=== PATIENT | male | born 1965 | race African-American/Black ===

== ENCOUNTER 2022-11-16 01:35 | Day surgery (SDC) | payer OTHER, SELFPAY ==
[2022-11-03 12:34] VITALS: BMI 27.1
[2022-11-16 06:39] VITALS: BP 123/74; PULSE 69; RESP 20; TEMP 36.8; O2SAT 98
[2022-11-16] MEDS: LACTATED RINGERS 1,000 ML 150 ML IV CONT (06:41)
--- NOTE | 2022-11-16 07:24 | WPDANESEPPF ---
Anes - Initial Pre Proc Eval Procedure: Operation Date: 11/16/22 08:00 Proposed Procedures p Colonoscopy - David Bojorquez MD Date/Time: 11/16/22 07:24 Surgeon: David Bojorquez MD Pre Op Diagnosis: hx colon polyps Patient Data Age: 57 Gender: M Height: 1.73 m Weight: 80.6 kg Last Vital Signs Temp 98.3 F 11/16/22 06:39 Pulse 69 11/16/22 06:39 Resp 20 11/16/22 06:39 BP 123/74 11/16/22 06:39 Pulse Ox 98 11/16/22 06:39 O2 Del Method Room Air 11/16/22 06:39 Allergies Allergy/AdvReac Type Severity Reaction Status Date / Time No Known Allergies Allergy Verified 11/16/22 06:38 Home Medications Medication Instructions Recorded Confirmed Type No Home Medications 09/24/22 11/16/22 History Patient hx anesthesia problems: none Family hx anesthesia problems: none Results Review: All pre-operative results and documents have been reviewed as part of the pre-operative evaluation. [facility] Past Medical History Medical History Gout HSV-2 (herpes simplex virus 2) infection Surgical History Surgical History History of skin surgery lipomas removed from back of neck and behind right shoulder Family History Family History Father Malignant neoplasm of prostate Diabetes mellitus Sibling Hypertension Thyroid disorder Other Gout Social History Social History Social History: Walks daily for exercise. Follows heart healthy diet. Does not drink caffeine. Smoking status: Never smoker Alcohol intake: never Substance use: never Substance use type: does not use Lack of Transportation: No Lack of Food: Sometimes True Current Housing: I Have Housing Concerned About Future Housing: No Difficulty Paying Gas/Electric Bills: No Difficulty Paying for Meds: YES Currently Unemployed: YES Education: High School Diploma/GED Difficulty w/ Childcare or Family Care: No Living arrangements: with family Occupation/Education: unemployed Spiritual care concerns: No Anes - Eval Final PreProcedure Day of Procedure 11/16/22 07:24 Patient weight: overweight Heart: regular rate and rhythm Lungs: clear to auscultation Airway: Mallampati scale class II Neurological: alert and oriented Last oral intake: >/= 8 hours ASA classification: II Emergent: no Anesthetic plan: proceed Anesthesia type and monitoring: general GIVS and standard monitoring Results Review: All pre-operative results and documents have been reviewed as part of the pre-operative evaluation. Informed Consent: The patient's anesthetic plan and its attendant risks and benefits were discussed with the patient/family/POA. Questions were solicited and answers provided to the satisfaction of the patient/family/POA.
--- NOTE | 2022-11-16 07:48 | PM.HPGS ---
History of Present Illness History of Present Illness Consent: Risks, benefits, and alternatives have been discussed and questions answered. Patient agrees to proceed with procedure. Chief complaint: hx colon polyps Narrative: Remy Bauer Jr. is a 57 year old male with colon polyp 5 years ago Review of Systems Constitutional: Constitutional: Denies headache(s) and Denies weakness Eyes: Eyes: Denies blurry vision ENT: Reports Normal hearing present, Denies headache(s) and Denies neck pain Cardiovascular: Cardiovascular: Denies chest pain and Denies dyspnea Respiratory: Respiratory: Denies dyspnea Gastrointestinal: Gastrointestinal: Reports no additional gastrointestinal complaints Genitourinary: Genitourinary: Denies dysuria Musculoskeletal: Musculoskeletal: Denies neck pain Integumentary/Breasts: Skin/Breast: Denies dry skin Neurologic: Reports Normal hearing present, Denies headache(s) and Denies weakness Psychiatric: Psychiatric: Denies anxiety Endocrine: Endocrine: Denies change in body appearance Hematologic/Lymphatic: Hematologic/Lymphatic: Denies easy bleeding Allergic/Immunologic: Allergic/Immunologic: Denies urticaria PMFSH Past Medical History Medical History (Updated 11/16/22 @ 07:49 by David Bojorquez MD) Colon polyp Gout HSV-2 (herpes simplex virus 2) infection Surgical History Surgical History History of skin surgery lipomas removed from back of neck and behind right shoulder Family History Family History Father Malignant neoplasm of prostate Diabetes mellitus Sibling Hypertension Thyroid disorder Other Gout Social History Social History Social History: Walks daily for exercise. Follows heart healthy diet. Does not drink caffeine. Smoking status: Never smoker Alcohol intake: never Substance use: never Substance use type: does not use Lack of Transportation: No Lack of Food: Sometimes True Current Housing: I Have Housing Concerned About Future Housing: No Difficulty Paying Gas/Electric Bills: No Difficulty Paying for Meds: YES Currently Unemployed: YES Education: High School Diploma/GED Difficulty w/ Childcare or Family Care: No Living arrangements: with family Occupation/Education: unemployed Spiritual care concerns: No Meds Home Medications and Allergies Home Medications Medication Instructions Recorded Confirmed Type No Home Medications 09/24/22 11/16/22 History Allergies Allergy/AdvReac Type Severity Reaction Status Date / Time No Known Allergies Allergy Verified 11/16/22 06:38 Vital Signs Vital Signs - 24 hr 11/16/22 06:39 Temperature 98.3 F Pulse Rate 69 Respiratory Rate 20 Blood Pressure 123/74 Pulse Oximetry 98 Oxygen Delivery Room Air Exam Const: General: comfortable and no acute distress HENMT: Face/Nose/Sinus: Normal nares present Eyes: General: appearance normal, both eyes and all related structures Neck: Neck: no JVD Resp: Auscultation: clear to auscultation bilaterally Cardio: Rate: regular rate Rhythm: regular rhythm GI: Inspection: non-distended GI Palp: Yes Soft to palpation Skin: General skin exam: normal color Neuro: General: gait normal Speech: normal speech Extrem: General: normal to inspection Psych: Mental Status: mental status grossly normal Assessment and Plan Assessment and plan (1) Colon polyp: Code(s): K63.5 - Polyp of colon Status: Acute Assessment and Plan: colonoscopy
[2022-11-16 08:14] VITALS: BP 107/73; PULSE 62; RESP 15; O2SAT 100
[2022-11-16 08:24] VITALS: BP 118/77; PULSE 61; RESP 13; O2SAT 100
[2022-11-16 08:34] VITALS: BP 127/80; PULSE 60; RESP 17; O2SAT 100
== END 2022-11-16 08:46 | disposition home or self-care (01) ==
PROVIDERS: PCP Family Medicine Adolescent Medicine; Visit Provider Internal Medicine Gastroenterology
PROC: 0DJD8ZZ Inspection of Lower Intestinal Tract, Via Natural or Artificial Opening Endoscopic (ICD-10-PCS; CPT 45378; principal; 2022-11-16 08:00)
DX: Z12.11 Encounter for screening for malignant neoplasm of colon (principal); D12.3 Benign neoplasm of transverse colon
CPT/HCPCS: 45385; 88305; J2001; J2704; J7120

== ENCOUNTER 2024-01-31 09:41 | Outpatient (CLI) | payer OTHER, SELFPAY ==
--- NOTE | ~2024-01-31 | XR_ITS ---
EXAMINATION: XR lumbar spine 2-3V DATE: 01/31/2024 10:05 INDICATION: Sacroiliitis. TECHNIQUE: 3 views of lumbar spine were obtained. COMPARISON: None. FINDINGS: There is 7 degrees dextrocurvature of lumbar spine. Vertebral body heights are normal. Ther e is severely decreased disc height at L1-L2, moderately decreased disc height at L3-L4, mildly decre ased disc height at L4-L5, and severely decreased disc height at L5-S1. There is multilevel facet treva nt osteoarthritis, severe in lower lumbar spine. IMPRESSION: 1. Severe lumbar spondylosis. Reviewed, dictated and finalized at location A. UNT MANAGER
[2024-01-31 10:51] LABS: Alanine Aminotransferase 44 U/L (6-50); Albumin Level 4.3 g/dL (3.5-5.1); Alkaline Phosphatase 78 U/L (38-126); Anion Gap 4 mmol/L (4-12); Aspartate Amino Transferase 32 U/L (17-59); Bilirubin,Total 1.1 mg/dL (0.2-1.3); Blood Urea Nitrogen 15 mg/dL (9-20); Calcium 9.4 mg/dL (8.4-10.2); Carbon Dioxide 31 mmol/L (22-30); Chloride 104 mmol/L (98-107); Cholesterol 227 mg/dL (0-200); Estimated Glomerular Filt Rate > 60; Glucose 132 mg/dL (65-110); HDL Direct 49 mg/dL; Potassium 3.7 mmol/L (3.4-5.0); Sodium 139 mmol/L (137-145); Triglycerides 97 mg/dL (<150)
[2024-01-31 10:53] LABS: Rheumatoid Factor < 12.0 IU/ML (<12)
[2024-01-31 11:01] LABS: LDL Cholesterol Direct 115 mg/dL
[2024-01-31 11:20] LABS: Prostate Specific Antigen 1.3 ng/mL (< OR = 4.0)
[2024-01-31 11:29] LABS: Erythrocyte Sedimentation Rate 4 mm/hr (0-20)
[2024-02-01 14:44] LABS: Anti Cyclic Citrullinated Pept <16 UNITS
== END 2024-01-31 09:42 | disposition home or self-care (01) ==
PROVIDERS: PCP Family Medicine Adolescent Medicine; Visit Provider Nurse Practitioner Family
DX: B00.9 Herpesviral infection, unspecified (principal); M10.9 Gout, unspecified; M25.532 Pain in left wrist; Z12.5 Encounter for screening for malignant neoplasm of prostate; Z13.220 Encounter for screening for lipoid disorders; M46.1 Sacroiliitis, not elsewhere classified; Z87.39 Personal history of other diseases of the musculoskeletal system and connective tissue; M47.896 Other spondylosis, lumbar region
CPT/HCPCS: 36415; 72100; 80053; 80061; 84153; 85652; 86038; 86039; 86200; 86430; G0103

== ENCOUNTER 2024-03-23 08:00 | Outpatient (RCR) | payer OTHER, SELFPAY ==
--- NOTE | 2024-03-03 14:29 | OPREHPOC ---
Outpatient Therapy Plan of Care This is a Multidisciplinary Plan of Care that may contain components documented by all disciplines (PT, OT, and ST.) PT Problem 1 PT Problem #1 Knowledge Deficit PT Goal 1 Goal / Goal Update *indep with HEP Target Visit 6 PT Goal 2 Goal / Goal Update * pt demonstrate correct technique with lifting from the floor Target Visit 6 PT Problem 2 PT Problem #2 Pain PT Goal 1 Goal / Goal Update * pt report pain at the worst of 2/10 Target Visit 6 PT Goal 2 Goal / Goal Update * radicular pain R LE to lateral hip at worst Target Visit 6 PT Problem 3 PT Problem #3 Impaired Strength PT Goal 1 Goal / Goal Update * good stability of lumbar spine with lifting from floor and simulated tasks of using chain saw Target Visit 6
--- NOTE | 2024-03-03 14:30 | PTOPEVAL1 ---
Assessment and note entered by Lala Ramos, PT Evaluation Information Assessment Status Evaluation ICD-10 Condition Codes (PT) Radiculopathy, lumbar region M54.16 Onset about year ago Subjective Information onset with turning in kitchen- instant pain and froze him few minutes, then eased and could move again. that happens every now and then; now more often, happens about 1-2 x/week with turning his back; now moving slower when doing things; get out of the car slower; avoiding lifting now. did fall few years ago on the ice and fell onto butt, pain for few days, then gone; Activity: works seasonal--trim trees; lift and carry logs; does some walking but not regular fitness activity; always done physical work and lifting Reported Pain Level Pain Score Self Report Additional Pain Score Comments pain range 0-6/10; tight and freezes his back, cannot move; catch in back then radicular into R LE - to posterior mid thigh increase pain: twist trunk, getting in/out trunk, lifting decrease pain: hold still, passes in few minutes; heat or ice take over the counter meds PRN Assessment PT Clinical Summary Remy has the diagnosis of radicular lumbar pain. Oswestry self rating of 34% limitation in activity level. He reports intermittent radicular pain into R LE to mid thigh, lasting few minutes, then gone. 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 Does not have any history of back pain. With the evaluation: he has good flexibility & strength of hips; reports of tight and stiff with motions and testing; only motion during eval that he called slight pain was with supine piriformis stretch on R; posture of flat lumbar spine and rounded shoulders. With his demonstration of lifting from the floor, he had poor technique--did not squat and twisted his back. Skilled PT services are indicated for modalities PRN for pain control, therapeutic exercises to increase abdominal support to spine, education for HEP and body mechanics. Plan of Care Interventions Electrical Stimulation,Hot Pack/Cold Pack,Manual Therapy,Neuro Re-education,Patient/Caregiver Education,Therapeutic Activities,Therapeutic Exercise,Ultrasound PT Services Indicated Yes Treatment Frequency and 1-2x/wk for 6 visits Duration These treatments will address the objective and functional deficits as defined above. The patient will be advanced safely and appropriately in order for the patient to progress towards his/her prior level of function. Additional exercises will be introduced and as well as a comprehensive home exercise program upon discharge, if needed, ?to ensure carryover of functional gains achieved in the clinic. This treatment plan has been reviewed and agreement upon by the patient.
--- NOTE | 2024-03-23 08:40 | PTOPDC ---
Assessment and note entered by Lala Ramos, PT Assessment Status Discharge ICD-10 Condition Codes (PT) Radiculopathy, lumbar region M54.16 Onset about year ago Subjective Information doing well, have not had any back pain lately; have not been working due to the cold weather and snow; have really learned a lot about lifting and how to do things the right way; doing the exercises at home--stretches really help; ready to be finished with therapy. Reported Pain Level Pain Score 0: Self Report Assessment PT Clinical Summary Remy has received 6 treatment sessions. Compared to the initial evaluation: pain rating now 0/10; Oswestry back self assessment of 0% limitation in activity level; improved trunk and hip strength and stability, education for HEP, correct body mechanics and lifting techniques. The goals were achieved. Discharge PT and he is to continue with his HEP and using good body mechanics. Plan of Care PT Services Indicated No
== END 2024-03-23 11:06 | disposition home or self-care (01) ==
LOC: ANHPT 08:00
PROVIDERS: PCP Family Medicine Adolescent Medicine; Visit Provider Nurse Practitioner Family
DX: M47.27 Other spondylosis with radiculopathy, lumbosacral region (principal)
CPT/HCPCS: 97110; 97161; 97530

== ENCOUNTER 2024-04-06 10:48 | Outpatient (RCR) | payer OTHER, SELFPAY | END 2024-06-26 09:27 | disposition home or self-care (01) | LOC: ANHDMC 10:48 | PROVIDERS: PCP Family Medicine Adolescent Medicine; Visit Provider Nurse Practitioner Family | DX: E11.9 Type 2 diabetes mellitus without complications (principal); M10.9 Gout, unspecified; Z71.89 Other specified counseling | CPT/HCPCS: G0108 ==

== ENCOUNTER 2024-04-11 10:01 | Outpatient (CLI) | payer OTHER, SELFPAY ==
--- NOTE | ~2024-04-11 | US_ITS ---
EXAM: Focused ultrasound examination of the soft tissues of the right groin HISTORY: K40.90 - Unilateral inguinal hernia, without obstruction ... TECHNIQUE: Sonographic evaluation of the soft tissues of the right groin were performed assessing gra yscale appearance and color Doppler flow. COMPARISON: None. FINDINGS: Sonographic evaluation of the soft tissues of the right groin demonstrate a 12 mm fascial defect thro ugh which fatty tissue extrudes. Hernia sac was easily reducible. Sonographic evaluation of the remainder of the soft tissues of the right groin demonstrate benign fib rofatty and fibromuscular elements without a cystic or solid lesion of concern. IMPRESSION: Right inguinal hernia, easily reducible, as detailed above. Reviewed, dictated and finalized at location A. [facility]
--- OUTSIDE RECORDS SUMMARY | 2024-04-11 11:06 | XMS_ITS | Clinical Summary ---
Author Organization [facility] Address [facility] [place] [address] Care Team Providers Care Mobility Architect Manager Name Role Phone Jamil Song MD Primary Care Provider [phone] Allergies Active Allergy Reactions Criticality Noted Date Comments Iodine Hives 06/16/2018 Medications cyclobenzaprine 10 MG tablet Take 1 tablet (10 mg total) by mouth 3 (three) times daily as needed. 15 tablet 05/09/2021 Active lidocaine 4 % patch Place 1 patch onto the skin daily. Remove & Discard patch within 12 hours or as directed by 7 patch 05/09/2021 Active ibuprofen (MOTRIN) 600 MG tablet Take 1 tablet (600 mg total) by mouth every 8 (eight) hours as needed for Pain. 20 tablet 01/21/2022 Active methylPREDNISol one, SARA, (MEDROL DOSEPAK) 4 MG tablet 6 TABLETS ON DAY ONE, 5 TABLETS DAY TWO, 4 TABLETS DAY THREE, 3 TABLETS DAY FOUR, 2 TABLETS DAY FIVE, AND 1 TABLET DAY SIX 1 each 01/21/2022 Active indomethacin (INDOCIN) 25 MG capsule Take 1 capsule (25 mg total) by mouth 2 (two) times daily with meals. 20 capsule 04/11/2022 Active Social History Tobacco Use Types Packs/Day Years Used Date Smoking Tobacco: Never Smokeless Tobacco: Never Tobacco Cessation:Counseling Given: Not Answered Alcohol Use Standard Drinks/Week Comments No 0 (1 standard drink = 0.6 oz pur e alcohol) AUDIT-C Answer Date Recorded Frequency of Alcohol Consumption Never 06/16/2018 Average Number of Drinks Not on file 019 Frequency of Binge Drinking Not on file 05/30 Sex and Gender Information Value Date Recorded Sex Assigned at Not on file Legal Sex Male 8:00 PM CDT Gender Identity Not on file Sexual Orientation Not on file Last Filed Vital Signs Vital Sign Reading Time Taken Comments Blood Pressure 132/91 04/11/2022 6:37 AM RESEARCH AND DEVELOPMENT DIRECTOR Pulse 71 04/11/2022 6:37 AM RESEARCH AND DEVELOPMENT DIRECTOR Temperature 37.6 C (99.7 F) 04/11/2022 6:37 AM RESEARCH AND DEVELOPMENT DIRECTOR Respiratory Rate 20 04/11/2022 6:37 AM RESEARCH AND DEVELOPMENT DIRECTOR Oxygen Saturation 100% 04/11/2022 6:37 AM RESEARCH AND DEVELOPMENT DIRECTOR Inhaled Oxygen Concentration - - Weight 88.8 kg (195 lb 12.3 oz) 04/11/2022 6:37 AM RESEARCH AND DEVELOPMENT DIRECTOR Height 172.7 cm (5' 8 ) 04/11/2022 6:37 AM RESEARCH AND DEVELOPMENT DIRECTOR Body Mass Index 29.77 04/11/2022 6:37 AM RESEARCH AND DEVELOPMENT DIRECTOR Plan of Treatment Health Maintenance Due Date Last Done Comments Colorectal Cancer Screening Colonoscopy (10 Years) 1966 Annual Physical 1969 Hepatitis C 02/23/1984 Hepatitis B Vaccines (1 of 3 - 19+ 3-dose series) 1985 Zoster Vaccines (1 of 2) 02/23/2016 COVID-19 Vaccine ( season) 2023 12/20/2021, 02/18/2021, 05/07/2020 Influenza Adult (#1) 2023 12/13/2021, 12/13/2019, 02/08/2019, Additional history exists DTaP, Tdap and Td Vaccines (2 - Td or Tdap) 04/06/2026 04/06/2016 Meningococcal B Vaccine Aged Out No l onger eligible based on patient's age to complete this topic Meningococcal Vaccine Aged Out No teodora gordon eligible based on patient's age to complete this topic Pneumococcal Vaccine: Pediatrics (0 to 5 Years) and At-Risk Patients (6 to 64 Years) Aged Out No longer eligible based on patient's age to complete this topic RSV Immunizations Under 20 Months Aged Out No longer eligible based on patient's age to complete this topic Insurance [employer] Care Teams Mobility Architect Manager Relationship Specialty Start Date End Date Jamil Song MD PCP - General FAMILY PRACTICE 06/16/18
--- OUTSIDE RECORDS SUMMARY | 2024-04-11 11:06 | XMS_ITS | Referral Summary ---
Author Organization [facility] Address [address] [place] [address] Care Team Providers Care Sales Trader Name Role Phone Jamil Song MD Primary Care Provider [phone] Source Comments [facility],non-owned Affiliates and Associated Physician Practices is amultiple site organization consisting of ambulatory clinics and hospital sitesin [place], [place], [place] and [place]. This disclosure is being madepursuant to the Care Everywhere program and may not contain all information available regarding this patient. Last updated 17.[facility] Allergies Active Allergy Reactions Criticality Noted Date Comments Povidone Iodine Urticaria Medium 06/16/2018 Medications * Be aware that medications may not be up to date on this document. Alwaysverify current medications with the patient. Medication Sig Dispensed Refills Start Date End Date Status ibuprofen (Motrin) 600 MG tablet Take 1 (one) tablet by mouth every 8 hours as needed For pain. 01/21/2022 Active meloxicam (Mobic) 15 MG tabletIndications:Ach illes tendinitis of left lower extremity Take 1 (one) tablet by mouth once daily 30 tablet 07/29/2023 Active Active Problems Problem Noted Date Diagnosed Date Tendinopathy of left rotator cuff 10/07/2022 Rotator cuff impingement syndrome of right shoul artis 08/03/2018 Social History Tobacco Use Types Packs/Day Years Used Date Smoking Tobacco: Never Smokeless Tobacco: Never Tobacco Cessation:Counseling Given: Not Answered Alcohol Use Standard Drinks/Week Comments No 0 (1 standard drink = 0.6 oz pur e alcohol) Sex and Gender Information Value Date Recorded Sex Assigned at Not on file Gender Identity Not on file Sexual Orientation Not on file Last Filed Vital Signs Vital Sign Reading Time Taken Comments Blood Pressure 136/88 09/22/2019 8:18 AM CDT Pulse 70 09/22/2019 8:18 AM CDT Temperature 36.6 C (97.9 F) 09/22/2019 8:18 AM CDT Respiratory Rate - - Oxygen Saturation 99% 09/22/2019 8:18 AM CDT Inhaled Oxygen Concentration - - Weight 89.8 kg (198 lb) 09/30/2023 9:46 AM CDT Height 170.2 cm (5' 7 ) 09/30/2023 9:46 AM CDT Body Mass Index 31.01 09/30/2023 9:46 AM CDT Plan of Treatment Not on file Care Teams Sales Trader Relationship Specialty Start Date End Date Jamil Song MD [address] [place] [id number] PCP - General 06/22/18
--- OUTSIDE RECORDS SUMMARY | 2024-04-11 11:06 | XMS_ITS | Patient Health Summary ---
Author Organization [facility] Address [address] [place] [address] Care Team Providers Care Vat Overhauler Name Role Phone Jamil Song MD Primary Care Provider [phone] Note from [facility],non-owned Affiliates and Associated Physician Practices is amultiple site organization consisting of ambulatory clinics and hospital sitesin [place], [place], [place] and [place]. This disclosure is being madepursuant to the Care Everywhere program and may not contain all information available regarding this patient. Last updated 17.[facility] Allergies * Povidone Iodine(Urticaria) -Medium Criticality Medications * Be aware that medications may not be up to date on this document. Alwaysverify current medications with the patient. * ibuprofen (Motrin) 600 MG tablet(Started 01/21/2022) Take 1 (one) tablet by mouth every 8 hours as needed For pain. * meloxicam (Mobic) 15 MG tablet(Started 07/29/2023) Take 1 (one) tablet by mouth once daily Active Problems Problem Noted Date Diagnosed Date [...] Mass Index 31.01 09/30/2023 9:46 AM CDT Procedures * XR ANKLE LEFT 3VW OR MORE(Performed 07/29/2023) Performed for Orthopedic aftercare * XR FOOT LEFT WT BEARING 3VW(Performed 07/29/2023) Performed for Orthopedic aftercare * WV DRAIN/INJECT LARGE JOINT/BURSA(Performed 10/07/2022) Performed for Tendinopathy of left rotator cuff * WV DRAIN/INJECT LARGE JOINT/BURSA(Performed 10/07/2022) Performed for Tendinopathy of right rotator cuff * WV DRAIN/INJECT LARGE JOINT/BURSA(Performed 09/17/2021) Performed for Tendinopathy of right rotator cuff * WV DRAIN/INJECT LARGE JOINT/BURSA(Performed 09/17/2021) Performed for Tendinopathy of left rotator cuff * XR SHOULDER RIGHT 2VW OR MORE(Performed 09/17/2021) Performed for Right shoulder pain, unspecified chronicity * XR SHOULDER LEFT 2VW OR MORE(Performed 09/17/2021) Performed for Left shoulder pain, unspecified chronicity * WV DRAIN/INJECT LARGE JOINT/BURSA(Performed 10/03/2020) Performed for Tendinopathy of right rotator cuff, Rotator cuff impingement syndrome of right shoulder * WV DRAIN/INJECT LARGE JOINT/BURSA(Performed 03/05/2020) Performed for Tendinopathy of right rotator cuff * WV DRAIN/INJECT LARGE JOINT/BURSA(Performed 11/28/2019) Performed for Tendinopathy of right rotator cuff * WV DRAIN/INJECT LARGE JOINT/BURSA(Performed 01/18/2019) Performed for Rotator cuff impingement syndrome of right shoulder * PROCDOC LARGE JOINT INJECTION(Performed 06/22/2018) Performed for Rotator cuff arthropathy of right shoulder * XR SHOULDER RIGHT 2VW OR MORE(Performed 06/22/2018) Performed for Right shoulder pain, unspecified chronicity * XR CHEST 2VW(Performed 12/26/2013) Results * XR ANKLE LEFT 3VW OR MORE (07/29/2023 10:18 AM CDT) Anatomical Region Laterality Modality Lower Extremity Radiographic Sinai ging 07/29/2023 1:02 PM CDT Impressions 07/29/2023 1:04 PM CDT IMPRESSION: Normal-appearing 3 view study of the left ankle proper. Incidentally noted is a small posterior calcaneal spur seen at the Achilles tendon insertion site. > Interpreting Provider: John Cain MD on 07/29/2023 1:04 PM Narrative 07/29/2023 1:04 PM CDT PROCEDURE: XR ANKLE LEFT 3VW OR MORE DATE/TIME OF EXAM: 07/29/2023 10:18 AM CLINICAL INFORMATION: None relevant/not provided if blank. Indication: Z47.89: Orthopedic aftercare Additional History: COMPARISON: None. FINDINGS: 3 view weightbearing study of the left ankle was performed to include AP, internal rotation and lateral views and shows no evidence of fracture, malalignment nor disruption of the left ankle articulations. Ankle mortise appears normal in width and symmetric in appearance. No evidence of significant joint effusion. Procedure Note John Cain MD - 07/29/2023 PROCEDURE: XR ANKLE LEFT 3VW OR MORE DATE/TIME OF EXAM: 07/29/2023 10:18 AM CLINICAL INFORMATION: None relevant/not provided if blank. Indication: Z47.89: Orthopedic aftercare Additional History: COMPARISON: None. FINDINGS: 3 view weightbearing study of the left ankle was performed to includeAP, internal rotation and lateral views and shows no evidence of fracture, malalignment nor disruption of the left ankle articulations. Anklemortise appears normal in width and symmetric in appearance. No evidence of significant joint effusion. IMPRESSION: Normal-appearing 3 view study of the left ankle proper. Incidentally noted is a small posterior calcaneal spur seen at theAchilles tendon insertion site. > Interpreting Provider: John Cain MD on 07/29/2023 1:04 PM Kailee Nice MD DIAGNOSTIC IMAGING O RDERABLES * XR FOOT LEFT WT BEARING 3VW (07/29/2023 10:18 AM CDT) Anatomical Region Laterality Modality Ankle / Foot Radiographic Sinai ging 07/29/2023 1:13 PM CDT Impressions 07/29/2023 1:14 PM CDT IMPRESSION: Pes planus with a small posterior calcaneal spur and mild arthritic changes of multiple interphalangeal joints of the second through fifth toes. > Interpreting Provider: John Cain MD on 07/29/2023 1:14 PM Narrative 07/29/2023 1:14 PM CDT PROCEDURE: XR FOOT LEFT WT BEARING 3VW DATE/TIME OF EXAM: 07/29/2023 10:18 AM CLINICAL INFORMATION: None relevant/not provided if blank. Indication: Z47.89: Orthopedic aftercare Additional History: COMPARISON: None. FINDINGS: Weightbearing AP, internal rotation and lateral views of the left foot were obtained and shows no evidence of fracture, malalignment nor bone or joint space destruction. No erosive changes were identified. Mild scattered arthritic changes involving multiple interphalangeal joints from the second through fifth toes. Lateral view suggests mild pes planus. Small posterior calcaneal spur is seen at the Achilles tendon insertion site. Procedure Note John Cain MD - 07/29/2023 PROCEDURE: XR FOOT LEFT WT BEARING 3VW DATE/TIME OF EXAM: 07/29/2023 10:18 AM CLINICAL INFORMATION: None relevant/not provided if blank. Indication: Z47.89: Orthopedic aftercare Additional History: COMPARISON: None. FINDINGS: Weightbearing AP, internal rotation and lateral views of the left footwere obtained and shows no evidence of fracture, malalignment nor bone orjoint space destruction. No erosive changes were identified. Mild scattered arthritic changes involving multiple interphalangeal joints from thesecond through fifth toes. Lateral view suggests mild pes planus. Smallposterior calcaneal spur is seen at the Achilles tendon insertion site. IMPRESSION: Pes planus with a small posterior calcaneal spur and mild arthritic changes of multiple interphalangeal joints of the secondthrough fifth toes. > Interpreting Provider: John Cain MD on 07/29/2023 1:14 PM Kailee Nice MD DIAGNOSTIC IMAGING O RDERABLES * WV DRAIN/INJECT LARGE JOINT/BURSA (10/07/2022 9:45 AM CDT) Dominick Shook MD - 10/07/2022 9:45 AM CDT Dominick Cabrera MD 10/07/2022 9:45 AM INJECTION PROCEDURE NOTE: The injection site was marked. A timeout was performed. Under sterile conditions, without complications, tolerated well by the patient, 4 cc ropivacaine and 80 mg (2 cc) triamcinolone were injected into the left subacromial space posteriorly. Dominick Cabrera MD PROCEDURE/MINOR SURG ICAL ORDERABLES * WV DRAIN/INJECT LARGE JOINT/BURSA (10/07/2022 9:45 AM CDT) Dominick Shook MD - 10/07/2022 9:45 AM CDT Dominick Cabrera MD 10/07/2022 9:45 AM INJECTION PROCEDURE NOTE: The injection site was marked. A timeout was performed. Under sterile conditions, without complications, tolerated well by the patient, 4 cc ropivacaine and 80 mg (2 cc) triamcinolone were injected into the right subacromial space posteriorly. Dominick Cabrera MD PROCEDURE/MINOR SURG ICAL ORDERABLES * WV DRAIN/INJECT LARGE JOINT/BURSA (09/17/2021 2:18 PM CDT) Dominick Shook MD - 09/17/2021 2:18 PM CDT Dominick Cabrera MD 09/18/2021 11:43 AM INJECTION PROCEDURE NOTE: The injection site was marked. A timeout was performed. Under sterile conditions, without complications, tolerated well by the patient, 4 cc ropivacaine and 80 mg (2 cc) triamcinolone were injected into the right subacromial space posteriorly. Dominick Cabrera MD PROCEDURE/MINOR SURG ICAL ORDERABLES * WV DRAIN/INJECT LARGE JOINT/BURSA (09/17/2021 2:18 PM CDT) Dominick Shook MD - 09/17/2021 2:18 PM CDT Dominick Cabrera MD 09/18/2021 11:43 AM INJECTION PROCEDURE NOTE: The injection site was marked. A timeout was performed. Under sterile conditions, without complications, tolerated well by the patient, 4 cc ropivacaine and 80 mg (2 cc) triamcinolone were injected into the left subacromial space posteriorly. Dominick Cabrera MD PROCEDURE/MINOR SURG ICAL ORDERABLES * XR SHOULDER RIGHT 2VW OR MORE (09/17/2021 1:57 PM CDT) Only the most recent of2 resultswithin the time period is included. Anatomical Region Laterality Modality Upper Extremity Radiographic Sinai ging 09/17/2021 2:14 PM CDT Impressions 09/17/2021 2:15 PM CDT IMPRESSION: Minimal degenerative change. This report was electronically signed by BRENNAN KUMAR MD on 09/17/2021 2:15 PM . Narrative 09/17/2021 2:15 PM CDT Exam: XR SHOULDER RIGHT 2VW OR MORE History: M25.511: Right shoulder pain, unspecified chronicity Comparison: 06/22/2018 Findings: No fracture or dislocation is present. There is minimal degenerative change without joint space narrowing. Procedure Note Brennan Kumar MD - 09/17/2021 Exam: XR SHOULDER RIGHT 2VW OR MORE History: M25.511: Right shoulder pain, unspecified chronicity Comparison: 06/22/2018 Findings: No fracture or dislocation is present. There is minimal degenerative change without joint space narrowing. IMPRESSION: Minimal degenerative change. This report was electronically signed by BRENNAN KUMAR MD on09/17/2021 2:15 PM . Dominick Cabrera MD DIAGNOSTIC IMAGING O RDERABLES * XR SHOULDER LEFT 2VW OR MORE (09/17/2021 1:57 PM CDT) Anatomical Region Laterality Modality Upper Extremity Radiographic Sinai ging 09/17/2021 2:15 PM CDT Impressions 09/17/2021 2:15 PM CDT IMPRESSION: Mild degenerative change. This report was electronically signed by BRENNAN KUMAR MD on 09/17/2021 2:15 PM . Narrative 09/17/2021 2:15 PM CDT Exam: XR SHOULDER LEFT 2VW OR MORE History: M25.512: Left shoulder pain, unspecified chronicity Comparison: None. Findings: No fracture or dislocation. There is mild acromioclavicular and glenohumeral degenerative change without joint space narrowing. Procedure Note Brennan Kumar MD - 09/17/2021 Exam: XR SHOULDER LEFT 2VW OR MORE History: M25.512: Left shoulder pain, unspecified chronicity Comparison: None. Findings: No fracture or dislocation. There is mild acromioclavicular and glenohumeral degenerative change without joint space narrowing. IMPRESSION: Mild degenerative change. This report was electronically signed by BRENNAN KMUAR MD on09/17/2021 2:15 PM . Dominick Cabrera MD DIAGNOSTIC IMAGING O RDERABLES * WV DRAIN/INJECT LARGE JOINT/BURSA (10/03/2020 2:19 PM CDT) Dominick Shook MD - 10/03/2020 2:19 PM CDT Dominick Cabrera MD 10/03/2020 2:19 PM INJECTION PROCEDURE NOTE: The injection site was marked. A timeout was performed. Under sterile conditions, without complications, tolerated well by the patient, 4 cc ropivacaine and 80 mg (2 cc) triamcinolone were injected into the right subacromial space posteriorly. Dominick Cabrera MD PROCEDURE/MINOR SURG ICAL ORDERABLES * WV DRAIN/INJECT LARGE JOINT/BURSA (03/05/2020 11:47 AM COPYWRITING INTERN) Dominick Shook MD - 03/05/2020 11:47 AM COPYWRITING INTERN Dominick Cabrera MD 03/05/2020 9:54 PM INJECTION PROCEDURE NOTE: The injection site was marked. A timeout was performed. Under sterile conditions, without complications, tolerated well by the patient, 4 cc ropivacaine and 80 mg (2 cc) triamcinolone were injected into the right subacromial space posteriorly. Dominick Cabrera MD PROCEDURE/MINOR SURG ICAL ORDERABLES * WV DRAIN/INJECT LARGE JOINT/BURSA (11/28/2019 11:16 AM CDT) Dominick Shook MD - 11/28/2019 11:16 AM CDT Dominick Cabrera MD 11/28/2019 11:16 AM INJECTION PROCEDURE NOTE: The injection site was marked. A timeout was performed. Under sterile conditions, without complications, tolerated well by the patient, 4 cc ropivacaine and 80 mg (2 cc) triamcinolone were injected into the right subacromial space posteriorly. Dominick Cabrera MD PROCEDURE/MINOR SURG ICAL ORDERABLES * WV DRAIN/INJECT LARGE JOINT/BURSA (01/18/2019 9:25 AM COPYWRITING INTERN) Narrative Dominick Cabrera MD - 01/18/2019 9:25 AM COPYWRITING INTERN Dominick Cabrera MD 01/18/2019 9:55 AM INJECTION PROCEDURE NOTE: The injection site was marked. A timeout was performed. Under sterile conditions, without complications, tolerated well by the patient, 4 cc ropivacaine and 80 mg (2 cc) triamcinolone were injected into the right subacromial space posteriorly. Dominick Cabrera MD PROCEDURE/MINOR SURG ICAL ORDERABLES * PROCDOC LARGE JOINT INJECTION (06/22/2018 10:23 AM CDT) Dominick Shook MD - 06/22/2018 10:23 AM CDT Dominick Cabrera MD 06/22/2018 10:23 AM INJECTION PROCEDURE NOTE: The injection site was marked. A timeout was performed. Under sterile conditions, without complications, tolerated well by the patient, 4 cc lidocaine and 80 mg (2 cc) triamcinolone were injected into the right subacromial space posteriorly. Dominick Cabrera MD PROCEDURE/MINOR SURG ICAL ORDERABLES * XR CHEST 2VW (12/26/2013 4:43 PM CDT) Anatomical Region Laterality Modality Chest Other Impressions 12/27/2013 11:55 AM CDT Impression: 1. Small left pleural effusion. No focal consolidation. 2. No displaced rib fractures are visualized. If there is high clinical concern for rib fractures, a rib series would be beneficial for further evaluation. This report was dictated by Iris Sharp M.D. IDr. Jake M.D. have personally reviewed and interpreted this examination/study. This report was electronically signed by Jake RUIZ M.D. on 12/27/2013 11:55 AM . Narrative 12/27/2013 11:55 AM CDT Exam: XR CHEST PA AND LATERAL Date: 12/26/2013 History: Trauma, rib fractures Findings: There is a small left pleural effusion. There is no focal consolidation or pneumothorax. The cardiac and mediastinal contours are normal. Mild degenerative changes are seen in the thoracic spine. No displaced rib fractures are identified. Procedure Note Melanie Ruiz MD - 05/29/2017 Exam: XR CHEST PA AND LATERAL Date: 12/26/2013 History: Trauma, rib fractures Findings: There is a small left pleural effusion. There is no focalconsolidation or pneumothorax. The cardiac and mediastinal contours arenormal. Mild degenerative changes are seen in the thoracic spine. Nodisplaced rib fractures are identified. IMPRESSION Impression: 1. Small left pleural effusion. No focal consolidation. 2. No displaced rib fractures are visualized. If there is high clinicalconcern for rib fractures, a rib series would be beneficial for furtherevaluation. This report was dictated by Iris Sharp M.D. I, Dr. E. ISIN AKDUMAN, M.D. have personally reviewed and interpreted thisexamination/study. This report was electronically signed by Jake RUIZ M.D. on12/27/2013 11:55 AM . Blu Hogue MD DIAGNOSTIC IMAGING ORDERABLES Care Teams Vat Overhauler Relationship Specialty Start Date End Date Jamil Song MD [address] [place] [address] PCP - General 06/22/18
--- OUTSIDE RECORDS SUMMARY | 2024-04-11 11:06 | XMS_ITS | Clinical Summary ---
Author Organization [facility] Address [address] [place] [address] Care Team Providers Care Tube Mounter Name Role Phone Jamil Song MD Primary Care Provider [phone] Source Comments [facility],non-owned Affiliates and Associated Physician Practices is amultiple site organization consisting of ambulatory clinics and hospital sitesin [place], [place], [place] and [place]. This disclosure is being madepursuant to the Care Everywhere program and may not contain all information available regarding this patient. Last updated 17.[facility] Allergies Active Allergy Reactions Criticality Noted Date [...] 09/30/2023 9:46 AM CDT Plan of Treatment Health Maintenance Due Date Last Done Comments COLOGUARD (AGES 45-75) - COL ON CA SCREENING 1966 COLON MONITORING 1966 COLONOSCOPY - COLON CA SCREENING 1966 CT COLONOGRAPHY - COLON CA SCREENING 1966 Colorectal Cancer Screening 1966 FIT - COLON CA SCREENING 1966 FLEX SIG - COLON CA SCREENING 1966 LIPID TESTING 1966 HIV SCREENING 1981 HEPATITIS C SCREENING 02/18/1984 DTAP/TDAP/TD VACCINES (1 - Tdap) 1985 HEPATITIS B VACCINE (1 of 3 - 19+ 3-dose series) 1985 PNEUMOCOCCAL VACCINE 50+ (1 of 1 - PCV) 02/23/2016 ZOSTER VACCINE (1 of 2) 02/23/2016 SCREENING FOR DIABETES 07/29/2023 COVID-19 VACCINE (1 - 2023-2 5 season) 2023 INFLUENZA VACCINE (#1) 2023 DEPRESSION SCREENING 03/01/2024 HIB VACCINE Aged Out No longer eligi ble based on patient's age to complete this topic HPV VACCINE Aged Out No longer eligi ble based on patient's age to complete this topic MENINGOCOCCAL (Group B) VACCINE Aged Out No longer eligible based on patient's age to complete this topic MENINGOCOCCAL VACCINE Aged Out No teodora gordon eligible based on patient's age to complete this topic PNEUMOCOCCAL VACCINE Aged Out No long er eligible based on patient's age to complete this topic Care Teams Tube Mounter Relationship Specialty Start Date End Date Jamil Song MD [address] [place] [address] PCP - General 06/22/18
== END 2024-04-11 10:02 | disposition home or self-care (01) ==
PROVIDERS: PCP Family Medicine Adolescent Medicine; Visit Provider Nurse Practitioner Family
DX: K40.90 Unilateral inguinal hernia, without obstruction or gangrene, not specified as recurrent (principal)
CPT/HCPCS: 76882

== ENCOUNTER 2024-05-13 06:58 | Emergency (ER) | payer OTHER, SELFPAY ==
--- NOTE | ~2024-05-13 | XR_ITS ---
Right Shoulder Technique: AP and scapular Y views were obtained. Clinical History: Pain Findings: No fracture or dislocation is seen. Osseous alignment is anatomic. The glenohumeral and acr omioclavicular joint spaces are preserved. Soft tissues are unremarkable. Impression: Unremarkable right shoulder radiographs. Reviewed, dictated and finalized at [facility]. Impression: Unremarkable right shoulder radiographs.
[2024-05-13 06:59] VITALS: BP 135/90; PULSE 70; RESP 16; TEMP 36.5; O2SAT 100
--- OUTSIDE RECORDS SUMMARY | 2024-05-13 07:00 | XMS_ITS | Patient Health Summary ---
Author Organization [facility] Address [address] [facility] [place] [address] Care Team Providers Care Manager Media Name Role Phone Randal Chadwick MD Primary Care Provider + Note from [facility],non-owned Affiliates and Associated Physician Practices is amultiple site organization consisting of ambulatory clinics and hospital sitesin [place], [place], [place] and [place]. This disclosure is being madepursuant to the Care Everywhere program and may not contain all information available regarding this patient. Last updated 17.[facility] Allergies * Povidone Iodine(Urticaria) -Medium Criticality Medications * Be aware that medications may not be up to date on this document. Alwaysverify current medications with the patient. * ibuprofen (Motrin) 600 MG tablet(Started 01/21/2022) Take 1 (one) tablet by mouth every 8 hours as needed For pain. * meloxicam (Mobic) 15 MG tablet(Started 07/29/2023) Take 1 (one) tablet by mouth once daily * indomethacin (Indocin) 25 MG capsule(Started 04/11/2022) Take 1 (one) capsule by mouth 2 times daily with morning and evening meal * acyclovir (Zovirax) 400 MG tablet(Started 08/29/2023) Take 1 (one) tablet by mouth 2 times daily Active Problems Problem Noted Date Diagnosed [...] CDT Inhaled Oxygen Concentration - - Weight 82.1 kg (181 lb) 05/08/2024 2:49 PM CDT Height 175.3 cm (5' 9 ) 05/08/2024 2:49 PM CDT Body Mass Index 26.73 05/08/2024 2:49 PM CDT Procedures * NE DRAIN/INJECT LARGE JOINT/BURSA(Performed 05/08/2024) Performed for Tendinopathy of right rotator cuff * XR SHOULDER RIGHT 2VW OR MORE(Performed 05/08/2024) Performed for Tendinopathy of right rotator cuff * XR ANKLE LEFT 3VW OR MORE(Performed 07/29/2023) Performed for Orthopedic aftercare * XR FOOT LEFT WT BEARING 3VW(Performed 07/29/2023) Performed for Orthopedic aftercare * NE DRAIN/INJECT LARGE JOINT/BURSA(Performed 10/07/2022) Performed for Tendinopathy of left rotator cuff * NE DRAIN/INJECT LARGE JOINT/BURSA(Performed 10/07/2022) Performed for Tendinopathy of right rotator cuff * NE DRAIN/INJECT LARGE JOINT/BURSA(Performed 09/17/2021) Performed for Tendinopathy of right rotator cuff * NE DRAIN/INJECT LARGE JOINT/BURSA(Performed 09/17/2021) Performed for Tendinopathy of left rotator cuff * XR SHOULDER RIGHT 2VW OR MORE(Performed 09/17/2021) Performed for Right shoulder pain, unspecified chronicity * XR SHOULDER LEFT 2VW OR MORE(Performed 09/17/2021) Performed for Left shoulder pain, unspecified chronicity * NE DRAIN/INJECT LARGE JOINT/BURSA(Performed 10/03/2020) Performed for Tendinopathy of right rotator cuff, Rotator cuff impingement syndrome of right shoulder * NE DRAIN/INJECT LARGE JOINT/BURSA(Performed 03/05/2020) Performed for Tendinopathy of right rotator cuff * NE DRAIN/INJECT LARGE JOINT/BURSA(Performed 11/28/2019) Performed for Tendinopathy of right rotator cuff * NE DRAIN/INJECT LARGE JOINT/BURSA(Performed 01/18/2019) Performed for Rotator cuff impingement syndrome of right shoulder * PROCDOC LARGE JOINT INJECTION(Performed 06/22/2018) Performed for Rotator cuff arthropathy of right shoulder * XR SHOULDER RIGHT 2VW OR MORE(Performed 06/22/2018) Performed for Right shoulder pain, unspecified chronicity * XR CHEST 2VW(Performed 12/26/2013) Results * NE DRAIN/INJECT LARGE JOINT/BURSA (05/08/2024 3:12 PM CDT) Narrative Dominick Cabrera MD - 05/08/2024 3:12 PM CDT Dominick Cabrera MD 05/08/2024 4:01 PM INJECTION PROCEDURE NOTE: The details of the procedure were discussed with the patient including risks and benefits. The patient had a chance to ask questions and gave consent to proceeding. The injection site was marked. A timeout was performed. Under sterile conditions, without complications, tolerated well by the patient, 5 cc ropivacaine and 80 mg (2 cc) triamcinolone were injected into the right subacromial space posteriorly. There was no blood loss. Dominick Cabrera MD Dominick Cabrera MD PROCEDURE/MINOR SURG ICAL ORDERABLES * XR Shoulder Right 2Vw or More (05/08/2024 2:46 PM CDT) Only the most recent of3 resultswithin the time period is included. Anatomical Region Laterality Modality Upper Extremity Computed Radiogr aphy 05/08/2024 3:34 PM CDT Narrative 05/08/2024 3:35 PM CDT 3 views right shoulder Indication: Right shoulder pain Findings: There is no displaced fracture or dislocation. There is no osseous destruction. Significant hypertrophic or erosive degenerative changes are not identified. There is faint calcification seen along the expected location of the rotator cuff in a pattern concerning for calcific tendinitis. > Interpreting Provider: Marcial Gleason JR, MD on 05/08/2024 3:35 PM Procedure Note Marcial Gleason MD - 05/08/2024 3 views right shoulder Indication: Right shoulder pain Findings: There is no displaced fracture or dislocation. There is no osseous destruction. Significant hypertrophic or erosive degenerative changesare not identified. There is faint calcification seen along the expected location of the rotator cuff in a pattern concerning for calcific tendinitis. > Interpreting Provider: Marcial Gleason JR, MD on 05/08/2024 3:35 PM Dominick Cabrera MD DIAGNOSTIC IMAGING O RDERABLES * XR ANKLE LEFT 3VW OR MORE [...] Nice MD DIAGNOSTIC IMAGING O RDERABLES * NE DRAIN/INJECT LARGE JOINT/BURSA (10/07/2022 9:45 AM CDT) [...] Cabrera MD PROCEDURE/MINOR SURG ICAL ORDERABLES * NE DRAIN/INJECT LARGE JOINT/BURSA (10/07/2022 9:45 AM CDT) [...] Cabrera MD PROCEDURE/MINOR SURG ICAL ORDERABLES * NE DRAIN/INJECT LARGE JOINT/BURSA (09/17/2021 2:18 PM CDT) [...] Cabrera MD PROCEDURE/MINOR SURG ICAL ORDERABLES * NE DRAIN/INJECT LARGE JOINT/BURSA (09/17/2021 2:18 PM CDT) Narrative Dominick Cabrera MD - 09/17/2021 2:18 PM CDT Dominick Cabrera MD 09/18/2021 11:43 AM INJECTION PROCEDURE NOTE: The injection site was marked. A timeout was performed. Under sterile conditions, without complications, tolerated well by the patient, 4 cc ropivacaine and 80 mg (2 cc) triamcinolone were injected into the left subacromial space posteriorly. Dominick Cabrera MD PROCEDURE/MINOR SURG ICAL ORDERABLES * XR SHOULDER LEFT 2VW OR MORE [...] change without joint space narrowing. Procedure Note rBennan Kumar MD - 09/17/2021 Exam: XR SHOULDER LEFT 2VW OR MORE History: M25.512: Left shoulder pain, unspecified chronicity Comparison: None. Findings: No fracture or dislocation. There is mild acromioclavicular and glenohumeral degenerative change without joint space narrowing. IMPRESSION: Mild degenerative change. This report was electronically signed by BRENNAN KUMAR MD on09/17/2021 2:15 PM . Dominick Cabrera MD DIAGNOSTIC IMAGING O RDERABLES * NE DRAIN/INJECT LARGE JOINT/BURSA (10/03/2020 2:19 PM CDT) [...] Cabrera MD PROCEDURE/MINOR SURG ICAL ORDERABLES * NE DRAIN/INJECT LARGE JOINT/BURSA (03/05/2020 11:47 AM CLINICAL EDUCATOR) Dominick Shook MD - 03/05/2020 11:47 AM CLINICAL EDUCATOR Dominick Cabrera MD 03/05/2020 9:54 PM INJECTION PROCEDURE NOTE: The injection site was marked. A timeout was performed. Under sterile conditions, without complications, tolerated well by the patient, 4 cc ropivacaine and 80 mg (2 cc) triamcinolone were injected into the right subacromial space posteriorly. Dominick Cabrera MD PROCEDURE/MINOR SURG ICAL ORDERABLES * NE DRAIN/INJECT LARGE JOINT/BURSA (11/28/2019 11:16 AM CDT) [...] Cabrera MD PROCEDURE/MINOR SURG ICAL ORDERABLES * NE DRAIN/INJECT LARGE JOINT/BURSA (01/18/2019 9:25 AM CLINICAL EDUCATOR) Dominick Shook MD - 01/18/2019 9:25 AM CLINICAL EDUCATOR Dominick Cabrera MD 01/18/2019 9:55 AM INJECTION PROCEDURE NOTE: The injection site was marked. A timeout was performed. Under sterile conditions, without complications, tolerated well by the patient, 4 cc ropivacaine and 80 mg (2 cc) triamcinolone were injected into the right subacromial space posteriorly. Dominick Cabrera MD PROCEDURE/MINOR SURG ICAL ORDERABLES * PROCDOC LARGE JOINT INJECTION (06/22/2018 10:23 AM CDT) Narrative Dominick Cabrera MD - 06/22/2018 10:23 AM CDT Dominick [...] AKDUMAN, M.D. have personally reviewed and interpreted this [...] dictated by Iris Sharp M.D. I, Dr. Jake RUIZ M.D. have personally reviewed and interpreted thisexamination/study. This report was electronically signed by Jake RUIZ M.D. on12/27/2013 11:55 AM . Blu Hogue MD DIAGNOSTIC IMAGING ORDERABLES Care Teams Manager Media Relationship Specialty Start Date End Date Randal Chadwick MD [address] [place] [id number] PCP - General Family Medicine 05/03/24
--- OUTSIDE RECORDS SUMMARY | 2024-05-13 07:00 | XMS_ITS | Referral Summary ---
Author Organization [facility] Address [address] [facility] [place] [address] Care Team Providers Care Dean Of Girls Name Role Phone Randal Chadwick MD Primary Care Provider + Source Comments [facility],non-owned Affiliates and Associated Physician Practices is amultiple site organization consisting of ambulatory clinics and hospital sitesin [place], [place], [place] and [place]. This disclosure is being madepursuant to the Care Everywhere program and may not contain all information available regarding this patient. Last updated 17.[facility] Encounters Date Type Department Care Team Description 05/08/2024 2:42 PM CDT - 05/08/2024 11:59 PM CDT Hospital Encounter [facility] - Radiology [address] [place] [address] Dominick Cabrera MD Discharge Disposition: Home or Self Care 05/08/2024 Travel 05/08/2024 2:30 PM CDT Office Visit [facility] - Orthopedic Surgery [address] [place] [address] Dominick Cabrera MD Tendinopathy of right rotator cuff (Primary Dx); Tendinopathy of left rotator cuff 05/04/2024 Orders Only [facility] - Orthopedic Surgery [address] [place] [address] Dominick Cabrera MD Tendinopathy of right rotator cuff 05/04/2024 Travel from Last 3 Months Allergies Active Allergy Reactions Criticality Noted Date [...] mouth once daily 30 tablet 07/29/2023 Active indomethacin (Indocin) 25 MG capsule Take 1 (one) capsule by mouth 2 times daily with morning and evening meal 04/11/2022 Active acyclovir (Zovirax) 400 MG tablet Take 1 (one) tablet by mouth 2 times daily 08/29/2023 Active Hospital, Clinic, or Other Facility Administered Medication Ordered Dose Route Frequency Start Date End Date Status ROPivacaine (Naropin) 2 MG/ML (0.2%) injection 4 mLIndications:Tendin opathy of right rotator cuff 4 mL INFILTRATION ONCE 05/08/2024 05/08/2024 Ended triamcinolone acetonide (Kenalog-40) injection 80 mgIndications:Tendin opathy of right rotator cuff 80 mg IX ONCE 05/08/2024 05/08/2024 Ended Active Problems Problem Noted Date Diagnosed Date [...] Mass Index 26.73 05/08/2024 2:49 PM CDT Plan of Treatment Not on file Procedures Procedure Name Priority Date/Time Associated Diagnosis Comments [place] DRAIN/INJECT LARGE JOINT/BURSA Routine 05/08/2024 3:12 PM CDT Tendinopathy of right rotator cuff XR SHOULDER RIGHT 2VW OR MORE Routine 05/08/2024 2:46 PM CDT Tendinopathy of right rotator cuff from Last 3 Months Results * [place] DRAIN/INJECT LARGE JOINT/BURSA (05/08/2024 3:12 PM CDT) [...] 2Vw or More (05/08/2024 2:46 PM CDT) Anatomical Region Laterality Modality Upper Extremity Computed [...] Dominick Cabrera MD DIAGNOSTIC IMAGING O RDERABLES from Last 3 Months Care Teams Dean Of Girls Relationship Specialty Start Date End Date Randal Chadwick MD [address] [address] PCP - General Family Medicine 05/03/24
--- OUTSIDE RECORDS SUMMARY | 2024-05-13 07:00 | XMS_ITS | Clinical Summary ---
Author Organization [facility] Address [address] [place] [address] Care Team Providers Care Ad Compositor Name Role Phone Randal Chadwick MD Primary Care Provider + Source Comments [facility],non-owned Affiliates and Associated Physician Practices is amultiple site organization consisting of ambulatory clinics and hospital sitesin [place], [place], [place] and [place]. This disclosure is being madepursuant to the Care Everywhere program and may not contain all information available regarding this patient. Last updated 17.[facility] Allergies Active Allergy Reactions Criticality Noted Date [...] impingement syndrome of right shoul artis 08/03/2018 Encounters Date Type Department Care Team Description 05/08/2024 2:42 PM CDT - 05/08/2024 11:59 PM CDT Hospital Encounter [facility] - Radiology [address] [address] Dominick Cabrera MD Discharge Disposition: Home or Self Care 05/08/2024 2:30 PM CDT Office Visit [facility] - Orthopedic Surgery [address] [place] [id number] Dominick Cabrera MD Tendinopathy of right rotator cuff (Primary Dx); Tendinopathy of left rotator cuff 05/08/2024 Travel 05/04/2024 Orders Only [facility] - Orthopedic Surgery [address] [place] [id number] Dominick Cabrera MD Tendinopathy of right rotator cuff 05/04/2024 Travel from Last 3 Months Social History Tobacco Use Types Packs/Day Years [...] 05/08/2024 2:49 PM CDT Plan of Treatment Health Maintenance Due [...] to complete this topic MENINGOCOCCAL (Group B) VACC INE SHARED DECISION-MAKING Aged Out No longer eligibl e based on patient's age to complete this topic MENINGOCOCCAL GROUPS A/C/Y/W VACCINE Aged Out No longer eligible b ased on patient's age to complete this topic Procedures Procedure Name Priority Date/Time Associated Diagnosis Comments [place] DRAIN/INJECT LARGE JOINT/BURSA Routine 05/08/2024 3:12 PM CDT Tendinopathy of right rotator cuff XR SHOULDER RIGHT 2VW OR MORE Routine 05/08/2024 2:46 PM CDT Tendinopathy of right rotator cuff from Last 3 Months Results * [place] DRAIN/INJECT LARGE JOINT/BURSA (05/08/2024 3:12 PM CDT) [...] MD on 05/08/2024 3:35 PM Procedure Note Macrial Gleason MD - 05/08/2024 3 views right [...] RDERABLES from Last 3 Months Care Teams Ad Compositor Relationship Specialty Start Date End Date Randal Chadwick MD [address] [address] PCP - General Family Medicine 05/03/24
--- OUTSIDE RECORDS SUMMARY | 2024-05-13 07:00 | XMS_ITS | Clinical Summary ---
Author Organization [facility] Address [address] [place] [address] Care Team Providers Care Flame Cutting Machine Operator Name Role Phone Jamil Song MD Primary Care Provider [phone] Allergies Active Allergy Reactions Criticality Noted Date [...] Comments Blood Pressure 132/91 04/11/2022 6:37 AM BROTHEL KEEPER Pulse 71 04/11/2022 6:37 AM BROTHEL KEEPER Temperature 37.6 C (99.7 F) 04/11/2022 6:37 AM BROTHEL KEEPER Respiratory Rate 20 04/11/2022 6:37 AM BROTHEL KEEPER Oxygen Saturation 100% 04/11/2022 6:37 AM BROTHEL KEEPER Inhaled Oxygen Concentration - - Weight 88.8 kg (195 lb 12.3 oz) 04/11/2022 6:37 AM BROTHEL KEEPER Height 172.7 cm (5' 8 ) 04/11/2022 6:37 AM BROTHEL KEEPER Body Mass Index 29.77 04/11/2022 6:37 AM BROTHEL KEEPER Plan of Treatment Health Maintenance Due Date [...] complete this topic Insurance [employer] Care Teams Flame Cutting Machine Operator Relationship Specialty Start Date End Date Jamil Song MD PCP - General FAMILY PRACTICE 06/16/18
[2024-05-13 08:07] VITALS: BP 120/82; PULSE 75; RESP 15; O2SAT 100
--- OUTSIDE RECORDS SUMMARY | 2024-05-13 09:36 | XMS_ITS | Referral Summary ---
Author Organization [facility] [employer] Address [address] [facility] [place] [address] Care Team Providers Care Stockroom Selector Name Role Phone Randal Chadwick MD Primary Care Provider + Source Comments [facility],non-owned Affiliates and Associated Physician Practices is amultiple site organization consisting of ambulatory clinics and hospital sitesin [place], [place], [place] and [place]. This disclosure is being madepursuant to the Care Everywhere program and may not contain all information available regarding this patient. Last updated 17.[facility] Encounters Date Type Department Care Team Description 05/08/2024 2:42 PM CDT - 05/08/2024 11:59 PM CDT Hospital Encounter [facility] - Radiology [address] [place] [address] Dominick Cabrera MD Discharge Disposition: Home or Self Care 05/08/2024 Travel 05/08/2024 2:30 PM CDT Office Visit [facility] - Orthopedic Surgery [address] [place] [address] Dmoinick Cabrera MD Tendinopathy of right rotator cuff (Primary Dx); Tendinopathy of left rotator cuff 05/04/2024 Orders Only [facility] - Orthopedic Surgery [address] [place] [address] Dominick Cabrera MD Tendinopathy of right [...] Procedure Name Priority Date/Time Associated Diagnosis Comments [place] DRAIN/INJECT LARGE JOINT/BURSA Routine 05/08/2024 3:12 PM CDT Tendinopathy of right rotator cuff XR SHOULDER RIGHT 2VW OR MORE Routine 05/08/2024 2:46 PM CDT Tendinopathy of right rotator cuff from Last 3 Months Results * ID DRAIN/INJECT LARGE JOINT/BURSA (05/08/2024 3:12 PM CDT) [...] RDERABLES from Last 3 Months Care Teams Stockroom Selector Relationship Specialty Start Date End Date Randal Chadwick MD [address] [address] PCP - General Family Medicine 05/03/24
--- OUTSIDE RECORDS SUMMARY | 2024-05-13 09:36 | XMS_ITS | Clinical Summary ---
Author Organization [facility] Address [address] [facility] [place] [address] Care Team Providers Care Meat Smoker Name Role Phone Randal Chadwick MD Primary Care Provider + Source Comments [facility],non-owned Affiliates and Associated Physician Practices is amultiple site organization consisting of ambulatory clinics and hospital sitesin [place], [place], [place] and [place]. This disclosure is being madepursuant to the Care Everywhere program and may not contain all information available regarding this patient. Last updated 17.[facility] Allergies Active Allergy Reactions Criticality Noted Date [...] Physician Group - Radiology [address] [address] Dominick Cabrera MD Discharge Disposition: Home or Self Care 05/08/2024 2:30 PM CDT Office Visit [facility] - Orthopedic Surgery [address] [place] [phone] Dominick Cabrera MD Tendinopathy of right rotator cuff (Primary Dx); Tendinopathy of left rotator cuff 05/08/2024 Travel 05/04/2024 Orders Only [facility] - Orthopedic Surgery [address] [place] [phone] Dominick Cabrera MD Tendinopathy of right rotator [...] Procedure Name Priority Date/Time Associated Diagnosis Comments [place] DRAIN/INJECT LARGE JOINT/BURSA Routine 05/08/2024 3:12 PM CDT Tendinopathy of right rotator cuff XR SHOULDER RIGHT 2VW OR MORE Routine 05/08/2024 2:46 PM CDT Tendinopathy of right rotator cuff from Last 3 Months Results * [place] DRAIN/INJECT LARGE JOINT/BURSA (05/08/2024 3:12 PM CDT) [...] RDERABLES from Last 3 Months Care Teams Meat Smoker Relationship Specialty Start Date End Date Randal Chadwick MD [address] [address] PCP - General Family Medicine 05/03/24
--- OUTSIDE RECORDS SUMMARY | 2024-05-13 09:36 | XMS_ITS | Clinical Summary ---
Author Organization [facility] Address [facility] of [facility] [place] [address] Care Team Providers Care Etl Bi Developer Name Role Phone Jamil Song MD Primary Care Provider [phone] Allergies Active Allergy Reactions Criticality Noted Date [...] Comments Blood Pressure 132/91 04/11/2022 6:37 AM RANGE MOUNTER Pulse 71 04/11/2022 6:37 AM RANGE MOUNTER Temperature 37.6 C (99.7 F) 04/11/2022 6:37 AM RANGE MOUNTER Respiratory Rate 20 04/11/2022 6:37 AM RANGE MOUNTER Oxygen Saturation 100% 04/11/2022 6:37 AM RANGE MOUNTER Inhaled Oxygen Concentration - - Weight 88.8 kg (195 lb 12.3 oz) 04/11/2022 6:37 AM RANGE MOUNTER Height 172.7 cm (5' 8 ) 04/11/2022 6:37 AM RANGE MOUNTER Body Mass Index 29.77 04/11/2022 6:37 AM RANGE MOUNTER Plan of Treatment Health Maintenance Due Date [...] complete this topic Insurance [employer] Care Teams Etl Bi Developer Relationship Specialty Start Date End Date Jamil Sogn MD PCP - General FAMILY PRACTICE 06/16/18
--- OUTSIDE RECORDS SUMMARY | 2024-05-13 09:36 | XMS_ITS | Patient Health Summary ---
Author Organization [facility] Address [address] [place] [address] Care Team Providers Care Flight Control Tower Operator Name Role Phone Randal Chadwick MD Primary Care Provider + Note from [facility],non-owned Affiliates and Associated Physician Practices is amultiple site organization consisting of ambulatory clinics and hospital sitesin [place], [place], [place] and [place]. This disclosure is being madepursuant to the Care Everywhere program and may not contain all information available regarding this patient. Last updated 17.[facility] Allergies * Povidone Iodine(Urticaria) -Medium Criticality Medications [...] 26.73 05/08/2024 2:49 PM CDT Procedures * GA DRAIN/INJECT LARGE JOINT/BURSA(Performed 05/08/2024) Performed for Tendinopathy of right rotator cuff * XR SHOULDER RIGHT 2VW OR MORE(Performed 05/08/2024) Performed for Tendinopathy of right rotator cuff * XR ANKLE LEFT 3VW OR MORE(Performed 07/29/2023) Performed for Orthopedic aftercare * XR FOOT LEFT WT BEARING 3VW(Performed 07/29/2023) Performed for Orthopedic aftercare * GA DRAIN/INJECT LARGE JOINT/BURSA(Performed 10/07/2022) Performed for Tendinopathy of left rotator cuff * GA DRAIN/INJECT LARGE JOINT/BURSA(Performed 10/07/2022) Performed for Tendinopathy of right rotator cuff * GA DRAIN/INJECT LARGE JOINT/BURSA(Performed 09/17/2021) Performed for Tendinopathy of right rotator cuff * GA DRAIN/INJECT LARGE JOINT/BURSA(Performed 09/17/2021) Performed for Tendinopathy of left rotator cuff * XR SHOULDER RIGHT 2VW OR MORE(Performed 09/17/2021) Performed for Right shoulder pain, unspecified chronicity * XR SHOULDER LEFT 2VW OR MORE(Performed 09/17/2021) Performed for Left shoulder pain, unspecified chronicity * GA DRAIN/INJECT LARGE JOINT/BURSA(Performed 10/03/2020) Performed for Tendinopathy of right rotator cuff, Rotator cuff impingement syndrome of right shoulder * GA DRAIN/INJECT LARGE JOINT/BURSA(Performed 03/05/2020) Performed for Tendinopathy of right rotator cuff * GA DRAIN/INJECT LARGE JOINT/BURSA(Performed 11/28/2019) Performed for Tendinopathy of right rotator cuff * GA DRAIN/INJECT LARGE JOINT/BURSA(Performed 01/18/2019) Performed for Rotator cuff impingement syndrome of right shoulder * PROCDOC LARGE JOINT INJECTION(Performed 06/22/2018) Performed for Rotator cuff arthropathy of right shoulder * XR SHOULDER RIGHT 2VW OR MORE(Performed 06/22/2018) Performed for Right shoulder pain, unspecified chronicity * XR CHEST 2VW(Performed 12/26/2013) Results * GA DRAIN/INJECT LARGE JOINT/BURSA (05/08/2024 3:12 PM CDT) [...] Nice MD DIAGNOSTIC IMAGING O RDERABLES * GA DRAIN/INJECT LARGE JOINT/BURSA (10/07/2022 9:45 AM CDT) [...] Cabrera MD PROCEDURE/MINOR SURG ICAL ORDERABLES * GA DRAIN/INJECT LARGE JOINT/BURSA (10/07/2022 9:45 AM CDT) [...] Cabrera MD PROCEDURE/MINOR SURG ICAL ORDERABLES * GA DRAIN/INJECT LARGE JOINT/BURSA (09/17/2021 2:18 PM CDT) [...] Cabrera MD PROCEDURE/MINOR SURG ICAL ORDERABLES * GA DRAIN/INJECT LARGE JOINT/BURSA (09/17/2021 2:18 PM CDT) [...] Cabrera MD DIAGNOSTIC IMAGING O RDERABLES * GA DRAIN/INJECT LARGE JOINT/BURSA (10/03/2020 2:19 PM CDT) [...] Cabrera MD PROCEDURE/MINOR SURG ICAL ORDERABLES * GA DRAIN/INJECT LARGE JOINT/BURSA (03/05/2020 11:47 AM COAL WHEELER) Dominick Shook MD - 03/05/2020 11:47 AM COAL WHEELER Dominick Cabrera MD 03/05/2020 9:54 PM INJECTION PROCEDURE NOTE: The injection site was marked. A timeout was performed. Under sterile conditions, without complications, tolerated well by the patient, 4 cc ropivacaine and 80 mg (2 cc) triamcinolone were injected into the right subacromial space posteriorly. Dominick Cabrera MD PROCEDURE/MINOR SURG ICAL ORDERABLES * GA DRAIN/INJECT LARGE JOINT/BURSA (11/28/2019 11:16 AM CDT) [...] Cabrera MD PROCEDURE/MINOR SURG ICAL ORDERABLES * GA DRAIN/INJECT LARGE JOINT/BURSA (01/18/2019 9:25 AM COAL WHEELER) Dominick Shook MD - 01/18/2019 9:25 AM COAL WHEELER Dominick Cabrera MD 01/18/2019 9:55 AM INJECTION [...] Hogue MD DIAGNOSTIC IMAGING ORDERABLES Care Teams Flight Control Tower Operator Relationship Specialty Start Date End Date Randal Chadwick MD [address] [place] [id number] PCP - General Family Medicine 05/03/24
--- NOTE | 2024-05-13 10:02 | ED.GENADULT ---
HPI - General Adult General Chief complaint: Extremity Injury, Upper Stated complaint: R shoulder pain Time Seen by Provider: 05/13/24 09:29 History of Present Illness HPI narrative: 59-year-old male presents to the emergency department for evaluation for right shoulder pain. Patient does have prior history of shoulder injury for which he was getting previous injections. Patient states over the last week he has had increased pain in the right shoulder does describe some fasciculations of the shoulder. Related Data Home Medications ?Medication ?Instructions ?Recorded ?Confirmed ?Last Taken ?Type acyclovir 400 mg tablet 400 mg PO BID PRN 04/19/24 04/26/24 Unknown History metformin 500 mg tablet,extended 500 mg PO DAILY 04/19/24 04/26/24 Unknown History release 24 hr Allergies Allergy/AdvReac Type Severity Reaction Status Date / Time No Known Allergies Allergy Verified 05/13/24 06:59 Review of Systems Review of Systems: All systems reviewed & are unremarkable except as noted in HPI and below PMFSH Past Medical History Medical History Colon polyp HSV-2 (herpes simplex virus 2) infection Gout Surgical History Surgical History History of skin surgery lipomas removed from back of neck and behind right shoulder Family History Family History Father Malignant neoplasm of prostate Diabetes mellitus Sibling Hypertension Thyroid disorder Other Gout Social History Social History Social History: Walks daily for exercise. Follows heart healthy diet. Does not drink caffeine. Smoking status: Never smoker Alcohol intake: never Substance use: never Substance use type: does not use Lack of Transportation: No Lack of Food: Sometimes True Current Housing: I Have Housing Concerned About Future Housing: No Difficulty Paying Gas/Electric Bills: No Difficulty Paying for Meds: YES Currently Unemployed: YES Education: High School Diploma/GED Difficulty w/ Childcare or Family Care: No Living arrangements: with family Occupation/Education: unemployed Spiritual care concerns: No Exam Narrative: APPEARANCE: Well appearing, no pain, no distress, well-nourished. HEAD: normocephalic, atraumatic. EYES: PERRLA/EOMI, conjunctivae clear. NOSE: Normal no drainage EARS:TMS clear with good light reflex. THROAT: Pharynx clear, no exudate. NECK: Supple. No adenopathy, no masses. RESPIRATORY: Airway patent, respirations nonlabored. Clear to auscultation bilaterally, no rales, rhonchi, wheezing. CARDIOVASCULAR: Regular rate and rhythm without murmurs rubs or gallops. ABDOMINAL: Soft, nontender, nondistended, normal bowel sounds MUSCULOSKELETAL: Limited range of motion of right shoulder and tenderness to palpation of posterior shoulder NEURO: Alert. Cranial nerves II through XII intact. Good gait. Good coordination SKIN: Warm, dry. Normal Color PSYCHIATRIC: Normal affect/mood. Course Vital Signs Vital signs: Vital Signs Temperature 97.7 F 05/13/24 06:59 Pulse Rate 70 05/13/24 06:59 Respiratory Rate 16 05/13/24 06:59 Blood Pressure 135/90 05/13/24 06:59 Pulse Oximetry 100 05/13/24 06:59 Oxygen Delivery Room Air 05/13/24 06:59 Temperature 97.7 F 05/13/24 06:59 Pulse Rate 74 05/13/24 10:34 Respiratory Rate 17 05/13/24 10:34 Blood Pressure 138/91 H 05/13/24 10:34 Pulse Oximetry 99 05/13/24 10:34 Oxygen Delivery Room Air 05/13/24 06:59 Medical Decision Making MDM Narrative Medical decision making narrative: 59-year-old male present to the emergency department for evaluation for right shoulder strain. X-ray was negative for acute fracture dislocation. Patient was advised on supportive care for home and patient was provided a sling for comfort. Patient was encouraged close follow-up with Orthopedics. Differential Diagnosis Differential Diagnosis: Rotator cuff strain, shoulder dislocation, shoulder fracture, radiculopathy Vital Signs Vital Signs: Vital Signs Temperature 97.7 F 05/13/24 06:59 Pulse Rate 70 05/13/24 06:59 Respiratory Rate 16 05/13/24 06:59 Blood Pressure 135/90 05/13/24 06:59 Pulse Oximetry 100 05/13/24 06:59 Oxygen Delivery Room Air 05/13/24 06:59 Temperature 97.7 F 05/13/24 06:59 Pulse Rate 74 05/13/24 10:34 Respiratory Rate 17 05/13/24 10:34 Blood Pressure 138/91 H 05/13/24 10:34 Pulse Oximetry 99 05/13/24 10:34 Oxygen Delivery Room Air 05/13/24 06:59 Imaging Data Radiologist's impression: Impressions Shoulder X-Ray 05/13/24 10:13 Impression: Unremarkable right shoulder radiographs. Discharge Plan Discharge Clinical Impression: Shoulder strain Patient Disposition: Home, Self-Care Condition: Stable Instructions: Antibiotic Form, How to Use a Sling (ED), Shoulder Pain (ED) Additional Instructions: Have close follow-up with Orthopedics. Your physician may wish to order an outpatient MRI of the shoulder if you symptoms are not improved. Ibuprofen for pain control. Flexeril for muscle spasm and sling as needed for shoulder support. Patient Language: Romanian Prescriptions: New cyclobenzaprine 10 mg tablet 10 mg PO BID PRN (Reason: muscle spasm) Qty: 14 0RF No Action acyclovir 400 mg tablet 400 mg PO BID PRN metformin 500 mg tablet extended release 24 hr 500 mg PO DAILY Rx Instructions: 1 tablet daily for 1 week then 1 tablet twice daily before breakfast and dinner (DME) blood-glucose meter [Accu-Chek Guide Glucose Meter] Misc See Rx Instructions .Route Qty: 1 0RF Rx Instructions: daily (DME) Accu-Chek Guide test strips Strip See Rx Instructions .Route Qty: 100 3RF Rx Instructions: daily (DME) lancets [Accu-Chek Softclix Lancets] Misc See Rx Instructions .Route Qty: 100 0RF Rx Instructions: daily Follow-up/Referrals: Bernardo Russo MD [Physician] - Randal Chadwick MD [Primary Care Provider] -
[2024-05-13] MEDS: KETOROLAC 30 MG/ML VIAL (*BKC) IM (10:25)
[2024-05-13] MEDS: CYCLOBENZAPRINE HCL 10 MG TABLET PO (10:30)
[2024-05-13 10:34] VITALS: BP 138/91; PULSE 74; RESP 17; O2SAT 99
== END 2024-05-13 10:44 | disposition home or self-care (01) ==
PROVIDERS: Emergency Provider Emergency Medicine; PCP Family Medicine Adolescent Medicine
DX: S46.911A Strain of unspecified muscle, fascia and tendon at shoulder and upper arm level, right arm, initial encounter (principal); M10.9 Gout, unspecified; Z86.0100 Personal history of colon polyps, unspecified; Z79.84 Long term (current) use of oral hypoglycemic drugs; X58.XXXA Exposure to other specified factors, initial encounter
CPT/HCPCS: 73030; 96372; 99283; A4565; A9270; J1885

== ENCOUNTER 2024-06-16 08:01 | Outpatient (CLI) | payer OTHER, SELFPAY ==
--- NOTE | 2024-06-16 08:07 | ECG_ITS ---
Test Date: 2024-06-16 08:19:17 Measurements Intervals [place] Rate: 56 P: 47 MS: 131 QRS: 49 QRSD: 109 T: 59 QT: 396 QTc: 383 Interpretive Statements SINUS BRADYCARDIA BORDERLINE R WAVE PROGRESSION, ANTERIOR LEADS BORDERLINE ECG No previous ECG available for comparison Electronically Signed On 06-16-2024 08:25:36 CDT by Jason Amezcua D.O.
--- OUTSIDE RECORDS SUMMARY | 2024-06-16 08:07 | XMS_ITS | Clinical Summary ---
Author Organization [facility] Address [address] [place] [address] Care Team Providers Care Thermal Molder Name Role Phone Randal Chadwick MD Primary Care Provider + Source Comments [facility],non-owned Affiliates and Associated Physician Practices is amultiple site organization consisting of ambulatory clinics and hospital sitesin [place], [place], [place] and [place]. This disclosure is being madepursuant to the Care Everywhere program and may not contain all information available regarding this patient. Last updated 17.[facility] Allergies Active Allergy Reactions Criticality Noted Date Comments Povidone Iodine Urticaria Medium 06/16/2018 Medications * Be aware that medications may not be up to date on this document. Alwaysverify current medications with the patient. ibuprofen (Motrin) 600 MG tablet Take 1 (one) tablet by mouth every 8 hours as needed For pain. 2 Active meloxicam (Mobic) 15 MG tabletIndicati ons:Achilles tendinitis of left lower extremity Take 1 (one) tablet by mouth once daily 30 tablet 4 Active Additional Information Patient not taking.Reported on 05/22/2024 indomethacin (Indocin) 25 MG capsule Take 1 (one) capsule by mouth 2 times daily with morning and evening meal 3 Active acyclovir (Zovirax) 400 MG tablet Take 1 (one) tablet by mouth 2 times daily 4 Active metFORMIN ER 24hr (Glucophage XR) 500 MG tablet 4 05/23/19 25 Discontin ued(List Clean-Up) SOFTCLIX LANCETS MISC USE DAILY 4 05/23/19 25 Discontin ued(List Clean-Up) Active Problems Problem Noted Date Diagnosed Date Tendinopathy of left rotator cuff 10/07/2022 Rotator cuff impingement syndrome of right shoul artis 08/03/2018 Encounters Date Type Department Care Team Description 05/22/2024 9:40 AM CDT [facility] [address] [place] [address] [place] [phone] Dominick Cabrera MD Tendinopathy of right rotator cuff (Primary Dx) 05/22/2024 Orders Only [facility] - Orthopedic Surgery [address] [place] [address] [place] [phone] Dominick Cabrera MD Tendinopathy of right rotator cuff 05/22/2024 Travel 05/17/2024 Travel 05/08/2024 2:42 PM CDT - 05/08/2024 11:59 PM CDT Hospital Encounter [facility] - Radiology [address] [place] [address] Dominick Cabrera MD Discharge Disposition: Home or Self Care 05/08/2024 2:30 PM CDT Office Visit [facility] - Orthopedic Surgery [address] [place] [address] [place] [phone] Dominick Cabrera MD Tendinopathy of right rotator cuff (Primary Dx); Tendinopathy of left rotator cuff 05/08/2024 Travel 05/04/2024 Orders Only [facility] - Orthopedic Surgery [address] [place] [address] [place] [phone] Dominick Cabrera MD Tendinopathy of right rotator cuff 05/04/2024 Travel from Last 3 Months Social History Tobacco Use Types Packs/Day Years Used Date Smoking Tobacco: Never Smokeless Tobacco: Never Tobacco Cessation:Counseling Given: Not Answered Alcohol Use Standard Drinks/Week Comments No 0 (1 standard drink = 0.6 oz pur e alcohol) PHQ-2 Answer Date Recorded Patient Health Questionnaire-2 Score 3 05/22/2024 Sex and Gender Information Value Date Recorded Sex Assigned at Not on file 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 Gender Identity Not on file Sexual Orientation Not on file Last Filed Vital Signs Vital Sign Reading Time Taken Comments Blood Pressure 136/88 09/22/2019 8:18 AM CDT Pulse 70 09/22/2019 8:18 AM CDT Temperature 36.6 C (97.9 F) 09/22/2019 8:18 AM CDT Respiratory Rate - - Oxygen Saturation 99% 09/22/2019 8:18 AM CDT Inhaled Oxygen Concentration - - Weight 82.1 kg (181 lb) 05/22/2024 9:50 AM CDT Height 175.3 cm (5' 9 ) 05/22/2024 9:50 AM CDT Body Mass Index 26.73 05/22/2024 9:50 AM CDT Plan of Treatment Health Maintenance [...] VACCINE (1 - 2023-2 5 season) 2023 DEPRESSION SCREENING 03/01/2024 INFLUENZA VACCINE (Season Ended) 2024 HIB VACCINE Aged Out No longer eligi [...] Procedure Name Priority Date/Time Associated Diagnosis Comments [place] DRAIN/INJECT LARGE JOINT/BURSA Routine 05/08/2024 3:12 PM CDT Tendinopathy of right rotator cuff XR SHOULDER RIGHT 2VW OR MORE Routine 05/08/2024 2:46 PM CDT Tendinopathy of right rotator cuff from Last 3 Months Results * NH DRAIN/INJECT LARGE JOINT/BURSA (05/08/2024 3:12 PM CDT) [...] Dominick Cabrera MD Dominick Cabrera MD PROCEDURE/MINOR SURGICAL ORDERAB LES Final Result * XR Shoulder Right 2Vw or More [...] 3:35 PM Dominick Cabrera MD DIAGNOSTIC IMAGING ORDERABLES Fi nal Result from Last 3 Months Insurance * Guarantor: REMY CAO JR. Account Type Relation to Patient Date of Phone Billing Address Personal/Family [phone] Care Teams Thermal Molder Relationship Specialty Start Date End Date Randal Chadwick MD [address] [address] PCP - General Family Medicine 05/03/24
--- OUTSIDE RECORDS SUMMARY | 2024-06-16 08:07 | XMS_ITS | Clinical Summary ---
Author Organization [facility] Address Counts include 234 beds at the [facility] [place] [address] Care Team Providers Care Lower School Spanish Teacher Name Role Phone Jamil Song MD Primary Care Provider [phone] Allergies Active Allergy Reactions Criticality Noted Date [...] Comments Blood Pressure 132/91 04/11/2022 6:37 AM SHIPPER AND RECEIVING Pulse 71 04/11/2022 6:37 AM SHIPPER AND RECEIVING Temperature 37.6 C (99.7 F) 04/11/2022 6:37 AM SHIPPER AND RECEIVING Respiratory Rate 20 04/11/2022 6:37 AM SHIPPER AND RECEIVING Oxygen Saturation 100% 04/11/2022 6:37 AM SHIPPER AND RECEIVING Inhaled Oxygen Concentration - - Weight 88.8 kg (195 lb 12.3 oz) 04/11/2022 6:37 AM SHIPPER AND RECEIVING Height 172.7 cm (5' 8 ) 04/11/2022 6:37 AM SHIPPER AND RECEIVING Body Mass Index 29.77 04/11/2022 6:37 AM SHIPPER AND RECEIVING Plan of Treatment Health Maintenance Due Date Last Done Comments Colorectal Cancer Screening Colonoscopy (10 Years) 1965 Annual Physical 1969 Hepatitis C 02/23/1984 Hepatitis B Vaccines (1 of 3 - 19+ 3-dose series) 1985 Pneumococcal Vaccine: 50+ Years (1 of 1 - PCV) 02/23/2016 Zoster Vaccines (1 of 2) 02/23/2016 COVID-19 Vaccine ( - 2023-2 5 season) 2023 12/20/2021, 02/18/2021, 05/07/2020 DTaP, Tdap and Td Vaccines ( 2 - Td or Tdap) 04/06/2026 04/06/2016 Meningococcal B Vaccine Aged Out No l onger eligible based on patient's age to complete this topic Meningococcal Vaccine Aged Out No teodora gordon eligible based on patient's age to complete this topic RSV Immunizations Under 20 Months Aged Out No longer eligible b ased on patient's age to complete this topic Insurance Care Teams Lower School Spanish Teacher Relationship Specialty Start Date End Date Jamil Song MD PCP - General FAMILY PRACTICE 06/16/18
[2024-06-16 08:38] LABS: Anion Gap 8 mmol/L (4-12); Blood Urea Nitrogen 10 mg/dL (9-20); Carbon Dioxide 26 mmol/L (22-30); Chloride 105 mmol/L (98-107); Estimated Glomerular Filt Rate > 60; Glucose 116 mg/dL (65-110); Potassium 3.9 mmol/L (3.4-5.0); Sodium 139 mmol/L (137-145)
== END 2024-06-16 08:02 | disposition home or self-care (01) ==
LOC: ANHSURGERY 08:04
PROVIDERS: Anesthesiology; PCP Family Medicine Adolescent Medicine; Visit Provider Surgery
DX: K40.90 Unilateral inguinal hernia, without obstruction or gangrene, not specified as recurrent (principal); E11.9 Type 2 diabetes mellitus without complications
CPT/HCPCS: 36415; 80048; 86850; 86900; 86901; 93005

== ENCOUNTER 2024-06-22 03:43 | Day surgery (SDC) | payer OTHER, SELFPAY ==
[2024-06-14 15:26] VITALS: BMI 28.4
--- NOTE | 2024-06-14 15:38 | PC.NURSE ---
Report to the Outpatient Waiting Room, entrance under the green pavilion located off [facility], at time ___0600____ on date ____06/22/24__. Planned Procedure Time: ___729 .? Time changes happen often and if your time is changed the preop area will call you the afternoon before. - You and your visitor will be asked to self-screen and do not enter if you have any COVID symptoms. Please call surgeon if you need to reschedule. - A mask is optional within the hospital at this time. Patients may have clear liquids (water, carbonated beverages, clear teas, apple juice) until 3 hours prior to surgery with a maximum of 20 ounces. - No food from midnight until time of surgery and no smoking, or chewing tobacco (or any form of nicotine). No chewing gum, candy or mints. Take only the following medications with a SIP of water on the morning of surgery: Acyclovir DO NOT STOP ANY OF YOUR OTHER PRESCRIPTION MEDICATIONS PRIOR TO SURGERY EXCEPT THE FOLLOWING Hold all vitamins and supplements for 3 days per anesthesiologist. Medications to discontinue per physician Hold Metformin morning of surgery Please no make-up, nail wolof, hairspray, perfume, deodorant, or body powder the day of surgery.? No jewelry (including any body piercings) or valuables the day of surgery, leave them at home.? Please take a shower or bath the night before, or the morning of, surgery with an antibacterial soap.? Wear comfortable, loose fitting clothing.? Children are encouraged to wear pajamas. - Jewelry must be removed prior to entering the operating room.? Rings and piercings that are not removed may be cut off. - The hospital will not accept responsibility for valuables.? - Please leave all valuables, including medications, at home the day of surgery. If you are going home after surgery, a licensed taxi driver must drive you home.? - NO public transportation without another adult if you receive anesthesia. - We recommend that an adult stay with you for 24 hours following discharge. - We also recommend that you do not drive, make important decision, drink alcoholic beverages, or take any drugs that were not prescribed by your health care provider for at least 24 hours after your discharge time. Follow any additional instructions given to you from your surgeon. Telephone instructions given to ___Remy Adan __and asked if any additional questions and then verbalized understanding. Patient advised to call surgeon office or pre surgery nurse liaison [phone] if any additional questions.
[2024-06-22] VITALS (10 sets, daily range): BP systolic 114–152; BP diastolic 67–88; PULSE 57–86; RESP 12–20; TEMP 36.4–36.9; O2SAT 96–100; BMI 28.0
--- OUTSIDE RECORDS SUMMARY | 2024-06-22 03:46 | XMS_ITS | Clinical Summary ---
Author Organization [facility] Address [facility] [place] [address] Care Team Providers Care Rigging Helper Name Role Phone Jamil Song MD Primary Care Provider [phone] Allergies Active Allergy Reactions Criticality Noted Date [...] Comments Blood Pressure 132/91 04/11/2022 6:37 AM LAND COMMISSIONER Pulse 71 04/11/2022 6:37 AM LAND COMMISSIONER Temperature 37.6 C (99.7 F) 04/11/2022 6:37 AM LAND COMMISSIONER Respiratory Rate 20 04/11/2022 6:37 AM LAND COMMISSIONER Oxygen Saturation 100% 04/11/2022 6:37 AM LAND COMMISSIONER Inhaled Oxygen Concentration - - Weight 88.8 kg (195 lb 12.3 oz) 04/11/2022 6:37 AM LAND COMMISSIONER Height 172.7 cm (5' 8 ) 04/11/2022 6:37 AM LAND COMMISSIONER Body Mass Index 29.77 04/11/2022 6:37 AM LAND COMMISSIONER Plan of Treatment Health Maintenance Due Date [...] to complete this topic Insurance Care Teams Rigging Helper Relationship Specialty Start Date End Date Jamil Song MD PCP - General FAMILY PRACTICE 06/16/18
--- OUTSIDE RECORDS SUMMARY | 2024-06-22 03:46 | XMS_ITS | Clinical Summary ---
Author Organization [facility] Address [address] [address] Care Team Providers Care Skull Splitter Name Role Phone Randal Chadwick MD Primary Care Provider + Source Comments [facility],non-owned Affiliates and Associated Physician Practices is amultiple site organization consisting of ambulatory clinics and hospital sitesin [place], [place], [place] and [place]. This disclosure is being madepursuant to the Care Everywhere program and may not contain all information available regarding this patient. Last updated 17.[facility] Allergies Active Allergy Reactions Criticality Noted Date Comments Povidone Iodine Urticaria Medium 06/16/2018 Medications * Be aware that medications may not be up to date on this document. Alwaysverify current medications with the patient. ibuprofen (Motrin) 600 MG tablet Take 1 (one) tablet by mouth every 8 hours as needed For pain. 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 08/03/2018 Encounters Date Type Department Care Team Description 05/22/2024 9:40 AM CDT Office Visit [facility] - Orthopedic Surgery [address] [place] [address] [place] [phone] Dominick Cabrera MD Tendinopathy of right rotator cuff (Primary Dx) 05/22/2024 Orders Only [facility] - Orthopedic Surgery [address], [place] [address], [place] [phone] Dominick Cabrera MD Tendinopathy of right rotator cuff 05/22/2024 Travel 05/17/2024 Travel 05/08/2024 2:42 PM CDT - 05/08/2024 11:59 PM CDT Hospital Encounter [facility] - Radiology [address] [address] Dominick Cabrera MD Discharge Disposition: Home or Self Care 05/08/2024 2:30 PM CDT Office Visit [facility] - Orthopedic Surgery [address] [place] [address] [place] [phone] Dominick Cabrera MD Tendinopathy of right rotator cuff (Primary Dx); Tendinopathy of left rotator cuff 05/08/2024 Travel 05/04/2024 Orders Only [facility] - Orthopedic Surgery [address] [place] [address] [place] [phone] Dominick Cabrera MD Tendinopathy of right rotator [...] on file 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 Gender Identity Not on file Sexual Orientation [...] Procedure Name Priority Date/Time Associated Diagnosis Comments OR DRAIN/INJECT LARGE JOINT/BURSA Routine 05/08/2024 3:12 PM CDT Tendinopathy of right rotator cuff XR SHOULDER RIGHT 2VW OR MORE Routine 05/08/2024 2:46 PM CDT Tendinopathy of right rotator cuff from Last 3 Months Results * OR DRAIN/INJECT LARGE JOINT/BURSA (05/08/2024 3:12 PM CDT) [...] of Phone Billing Address Personal/Family [phone] Care Teams Skull Splitter Relationship Specialty Start Date End Date Randal Chadwick MD [address] [facility] [address] [place] [address] PCP - General Family Medicine 05/03/24
[2024-06-22] MEDS: LACTATED RINGERS 1,000 ML 30 ML IV CONT ×2 (06:25→08:47)
[2024-06-22] MEDS: ACETAMINOPHEN 500 MG TABLET 1000 MG PO (06:40)
[2024-06-22] MEDS: KETOROLAC 15 MG/ML VIAL (*BKC) IV PUSH (06:41)
--- NOTE | 2024-06-22 07:06 | WPDANESEPPF ---
Anes - Initial Pre Proc Eval Procedure: Operation Date: 06/22/24 07:30 Proposed Procedures p Robotic Assisted Right Inguinal Hernia Repair with Mesh - Valerie Joshua MD Date/Time: 06/22/24 07:06 Surgeon: Valerie Joshua MD Pre Op Diagnosis: Right Inguinal Hernia Patient Data Age: 59 Gender: M Height: 1.7 m Weight: 82.3 kg Allergies Allergy/AdvReac Type Severity Reaction Status Date / Time No Known Allergies Allergy Verified 06/14/24 15:23 Home Medications ?Medication ?Instructions ?Recorded ?Confirmed ?Type blood sugar diagnostic (Accu-Chek #100 ea 02/09/24 04/26/24 Rx Guide test strips) blood-glucose meter (Accu-Chek #1 ea 02/09/24 04/26/24 Rx Guide Glucose Meter) lancets (Accu-Chek Softclix #100 ea 02/09/24 04/26/24 Rx Lancets) acyclovir 400 mg tablet 400 mg PO BID PRN PRN 04/19/24 06/14/24 History metformin 500 mg tablet,extended 500 mg PO DAILY 04/19/24 06/14/24 History release 24 hr Patient hx anesthesia problems: none Family hx anesthesia problems: none Results Review: All pre-operative results and documents have been reviewed as part of the pre-operative evaluation. [facility] Past Medical History Medical History Colon polyp HSV-2 (herpes simplex virus 2) infection Gout Surgical History Surgical History History of skin surgery lipomas removed from back of neck and behind right shoulder Family History Family History Father Malignant neoplasm of prostate Diabetes mellitus Sibling Hypertension Thyroid disorder Other Gout Social History Social History Social History: Walks daily for exercise. Follows heart healthy diet. Does not drink caffeine. Smoking status: Never smoker Alcohol intake: never Substance use: never Substance use type: does not use Lack of Transportation: No Lack of Food: Sometimes True Current Housing: I Have Housing Concerned About Future Housing: No Difficulty Paying Gas/Electric Bills: No Difficulty Paying for Meds: YES Currently Unemployed: YES Education: High School Diploma/GED Difficulty w/ Childcare or Family Care: No Living arrangements: with family Additional living arrangements comments: with son Occupation/Education: unemployed Spiritual care concerns: No Anes - Eval Final PreProcedure Day of Procedure 06/22/24 07:06 Patient weight: normal Heart: regular rate and rhythm Lungs: clear to auscultation Airway: Mallampati scale class II Neurological: alert and oriented Last oral intake: >/= 8 hours ASA classification: II Emergent: no Anesthetic plan: proceed Anesthesia type and monitoring: general ETT and standard monitoring Results Review: All pre-operative results and documents have been reviewed as part of the pre-operative evaluation. Informed Consent: The patient's anesthetic plan and its attendant risks and benefits were discussed with the patient/family/POA. Questions were solicited and answers provided to the satisfaction of the patient/family/POA.
[2024-06-22 07:16] LABS: Glucose Point of Care 83 mg/dl (65-105)
--- NOTE | 2024-06-22 07:22 | PM.IMHP ---
H&P: HPI History of Present Illness Date/Time: 06/22/24 07:22 Chief Complaint: Right inguinal hernia Narrative: Remy is a 59 y/o male who presents to the office at the request of Armida Bhatt APRN for evaluation of a right inguinal hernia. Patient states he noticed increased pain in the right groin about 3 months ago after shoveling snow. He did notice discomfort in the right groin about a year ago and has experiencing intermittent groin discomfort since then. He states the bulge is reducible. Right groin ultrasound on 04/11/24 showed a easily reducible right inguinal hernia. Review of Systems Review of Systems: All systems reviewed & are unremarkable except as noted in HPI and below PMFSH Past Medical History Medical History Colon polyp HSV-2 (herpes simplex virus 2) infection Gout Surgical History Surgical History History of skin surgery lipomas removed from back of neck and behind right shoulder Family History Family History Father Malignant neoplasm of prostate Diabetes mellitus Sibling Hypertension Thyroid disorder Other Gout Social History Social History Social History: Walks daily for exercise. Follows heart healthy diet. Does not drink caffeine. Smoking status: Never smoker Alcohol intake: never Substance use: never Substance use type: does not use Lack of Transportation: No Lack of Food: Sometimes True Current Housing: I Have Housing Concerned About Future Housing: No Difficulty Paying Gas/Electric Bills: No Difficulty Paying for Meds: YES Currently Unemployed: YES Education: High School Diploma/GED Difficulty w/ Childcare or Family Care: No Living arrangements: with family Additional living arrangements comments: with son Occupation/Education: unemployed Spiritual care concerns: No Meds Home Medications and Allergies Home Medications ?Medication ?Instructions ?Recorded ?Confirmed ?Type blood sugar diagnostic (Accu-Chek #100 ea 02/09/24 04/26/24 Rx Guide test strips) blood-glucose meter (Accu-Chek #1 ea 02/09/24 04/26/24 Rx Guide Glucose Meter) lancets (Accu-Chek Softclix #100 ea 02/09/24 04/26/24 Rx Lancets) acyclovir 400 mg tablet 400 mg PO BID PRN PRN 04/19/24 06/14/24 History metformin 500 mg tablet,extended 500 mg PO DAILY 04/19/24 06/14/24 History release 24 hr Allergies Allergy/AdvReac Type Severity Reaction Status Date / Time No Known Allergies Allergy Verified 06/14/24 15:23 Exam Const: General: cooperative, comfortable and no acute distress Resp: Auscultation: clear to auscultation bilaterally Cardio: Rate: regular rate Rhythm: regular rhythm GI: Inspection: normal to inspection and non-distended GI Palp: No abdominal tenderness, Yes Soft to palpation and Yes Hernia present Other: easily reducible moderate-size right inguinal hernia Assessment and Plan Assessment and plan (1) Hernia, inguinal, right: Code(s): K40.90 - Unilateral inguinal hernia, without obstruction or gangrene, not specified as recurrent Status: Acute Assessment and Plan: set up for robotic assisted repair with mesh
--- NOTE | 2024-06-22 07:24 | WPDHPUPDATE1 ---
History and Physical Update Update Date/Time: 06/22/24 07:24 History and Physical has been reviewed, including an updated exam of the patient. There are NO changes in the patient's condition. Risks, benefits, and alternatives have been discussed and questions answered. Patient agrees to proceed with procedure.
[2024-06-22] MEDS: ceFAZolin 2 GM/D5W 50 ML 2 GM/50 ML BAG IVPB (08:02)
[2024-06-22] MEDS: BUPIVACAINE/EPINEPHRINE 0.5% 30 ML VIAL INFILTRATE (08:14)
--- NOTE | 2024-06-22 08:43 | W.PM.PROC2 ---
Procedure Note - Detailed Date of Procedure 06/22/24 Pre-op Diagnosis Right Inguinal Hernia Post-op Diagnosis Same Procedure Performed robotic assisted right inguinal hernia repair with mesh Surgeon Valerie Joshua MD Anesthesia General Indications 59-year-old male with progressively worsening right inguinal hernia over the last few months Findings indirect right inguinal hernia Description of Procedure Patient was brought into the operating room and placed in the supine position. After adequate induction of general anesthesia, the patient was prepped and draped in normal sterile fashion. A time-out was then done to verify the patient's identity, as well as the procedure being performed. Began by making a 8 mm incision in the supraumbilical region, a Veress needle was then placed into the peritoneal cavity. CO2 gas was then insufflated and after adequate pneumoperitoneum was achieved, the Veress needle was removed. I then placed an 8 mm trocar through this incision. I then placed the endoscope through this trocar site and under direct visualization placed 2 further 8 mm ports in the right and left mid abdomen. The [facility] robot was then docked to the 3 trocar sites. I then scrubbed out and went to the robotic console. Upon examining the pelvis, it was noted that the patient had a moderate sized right inguinal hernia. The left side was examined and no hernia defect was noted. I began by making a preperitoneal flap approximately 6 cm superior to the defect. This flap was carried medially past the umbilical ligaments in laterally to the transversalis. It then began dissection of my medial compartment taking this down to the pubic tubercle. I then began the lateral dissection taking this down to the transversalis fascia. Once these compartments were achieved, I began dissection around the cord structures. A moderate sized indirect hernia was noted at this point. Using careful dissection, was able to reduce indirect hernia sac off the cord structures. Once this was adequately done, I went ahead and placed a large piece of 3D Max mesh into the abdominal cavity. The mesh was carefully positioned, centering the center of the mesh over the indirect defect. Once this was done, was very satisfied with our repair. Using 3-0 Vicryl sutures, I tacked the mesh medially to Abraham's ligament. Two lateral sutures were placed from the mesh to the transversalis fascia. I then closed the peritoneal flap with a running 2.0 V Lock suture. The abdomen was then desufflated, and all ports were removed. All incisions were then closed with the 4.0 monocryl suture. Dermabond was placed on each wound. The patient tolerated the procedure well, was extubated in the operating room postoperatively, and will now be transferred to the recovery room in stable condition. Implants large 3DMax mesh Estimated Blood Loss 10 Drains No Packing No Pathology None sent Complications No immediate complications Condition Stable Disposition PACU [facility] Billing Surgery - Charge Forward: Surgery Billing
[2024-06-22] MEDS: fentaNYL CITRATE INJ (*CRX) 100 MCG/2 ML VIAL 25 MCG IV PUSH ×4 (08:50→09:34)
[2024-06-22 09:03] LABS: Glucose Point of Care 151 mg/dl (65-105)
[2024-06-22] MEDS: oxyCODONE HCL (*CRX) 5 MG TAB IR PO (09:53)
== END 2024-06-22 11:03 | disposition home or self-care (01) ==
PROVIDERS: PCP Family Medicine Adolescent Medicine; Visit Provider Surgery
PROC: 8E0Y4CZ Robotic Assisted Procedure of Lower Extremity, Percutaneous Endoscopic Approach (ICD-10-PCS; CPT 49650; principal; 2024-06-22 07:30)
DX: K40.90 Unilateral inguinal hernia, without obstruction or gangrene, not specified as recurrent (principal)
CPT/HCPCS: 49650; S2900; 82948; A9270; C1781; J0690; J1100; J1171; J1885; J2003; J2250; J2405; J2704; J3010; J7030; J7120

== ENCOUNTER 2024-09-06 07:09 | Emergency (ER) | payer OTHER, SELFPAY ==
--- NOTE | ~2024-09-06 | XR_ITS ---
Right Shoulder Technique: AP and scapular Y views were obtained. Clinical History: Trauma Findings: No fracture or dislocation is seen. Osseous alignment is anatomic. The glenohumeral and acr omioclavicular joint spaces are preserved. There are probable loose body in the biceps tendon sheath region. Impression: Probable loose body in the biceps tendon sheath region. No fracture or dislocation. Reviewed, dictated and finalized at location . Impression: Probable loose body in the biceps tendon sheath region. No fracture or dislocation.
--- OUTSIDE RECORDS SUMMARY | 2024-09-06 07:11 | XMS_ITS | Clinical Summary ---
Author Organization [facility] Address [address] [place] [address] Care Team Providers Care Heddler Tier Name Role Phone Randal Chadwick MD Primary Care Provider + Source Comments [facility],non-owned Affiliates and Associated Physician Practices is amultiple site organization consisting of ambulatory clinics and hospital sitesin [place], [place], [place] and [place]. This disclosure is being madepursuant to the Care Everywhere program and may not contain all information available regarding this patient. 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 Account Type Relation to Patient Date of Phone Billing Address Personal/Family [phone] Care Teams Heddler Tier Relationship Specialty Start Date End Date Randal Chadwick MD [address] [place] [id number] PCP - General Family Medicine 05/03/24
--- OUTSIDE RECORDS SUMMARY | 2024-09-06 07:11 | XMS_ITS | Clinical Summary ---
Author Organization [facility] Address [facility] [place] [address] Care Team Providers Care Dowel Sticker Operator Name Role Phone Jamil Song MD Primary Care Provider [phone] Allergies Active Allergy Reactions Criticality Noted Date [...] Comments Blood Pressure 132/91 04/11/2022 6:37 AM FERMENTER OPERATOR Pulse 71 04/11/2022 6:37 AM FERMENTER OPERATOR Temperature 37.6 C (99.7 F) 04/11/2022 6:37 AM FERMENTER OPERATOR Respiratory Rate 20 04/11/2022 6:37 AM FERMENTER OPERATOR Oxygen Saturation 100% 04/11/2022 6:37 AM FERMENTER OPERATOR Inhaled Oxygen Concentration - - Weight 88.8 kg (195 lb 12.3 oz) 04/11/2022 6:37 AM FERMENTER OPERATOR Height 172.7 cm (5' 8) 04/11/2022 6:37 AM FERMENTER OPERATOR Body Mass Index 29.77 04/11/2022 6:37 AM FERMENTER OPERATOR Plan of Treatment Health Maintenance Due Date [...] to complete this topic Insurance Care Teams Dowel Sticker Operator Relationship Specialty Start Date End Date Jamil Song MD PCP - General FAMILY PRACTICE 06/16/18
[2024-09-06 07:16] VITALS: BP 108/68; PULSE 89; RESP 16; TEMP 36.6; O2SAT 100
[2024-09-06] MEDS: KETOROLAC (*BKC) 60 MG/2 ML VIAL IM (07:33)
--- NOTE | 2024-09-06 07:43 | ED_ITS ---
HPI - Fall General Chief Complaint: Fall Stated Complaint: R shoulder/R knee pain after fall 1-2 wks ago Time Seen by Provider: 09/06/24 07:12 History of Present Illness HPI Narrative: Patient is a 59-year-old male who presents ER with right shoulder pain and right knee pain. One week ago he was getting some extension cord in his garage in stepping backwards when he tripped and fell striking his right shoulder on the ground. He did not strike his head or lose consciousness. Sudden onset pain in the shoulder like he was shot. Has pain with abduction and external rotation. No numbness or tingling. Reports he has noticed some achiness in his right knee but has no difficulty with range of motion or ambulation. Has history of shoulder injury in the past and has had shoulder injections. Related Data Home Medications ?Medication ?Instructions ?Recorded ?Confirmed ?Last Taken ?Type acyclovir 400 mg tablet 400 mg PO BID PRN PRN 04/19/24 07/05/24 Unknown History metformin 500 mg tablet,extended 500 mg PO DAILY 04/19/24 07/05/24 06/21/24 History release 24 hr Allergies Allergy/AdvReac Type Severity Reaction Status Date / Time No Known Allergies Allergy Verified 09/06/24 07:15 Review of Systems Review of Systems: All systems reviewed & are unremarkable except as noted in HPI and below Constitutional: Constitutional: Reports no additional constitutional complaints Cardiovascular: Cardiovascular: Reports no additional cardiovascular complaints Respiratory: Respiratory: Reports no additional respiratory complaints Musculoskeletal: Musculoskeletal: Reports no additional musculoskeletal complaints Neurologic: Reports system reviewed and no additional complaints, except as documented [facility] Past Medical History Medical History (Updated 09/06/24 @ 08:20 by Miles Nina MD) Colon polyp HSV-2 (herpes simplex virus 2) infection Gout Surgical History Surgical History (Updated 07/05/24 @ 09:11 by Hector Blair MA) History of robot-assisted repair of right inguinal hernia (05/2024) 06/22/24 robotic assisted right inguinal hernia repair with mesh Dr. Joshua History of skin surgery lipomas removed from back of neck and behind right shoulder Family History Family History Father Malignant neoplasm of prostate Diabetes mellitus Sibling Hypertension Thyroid disorder Other Gout Social History Social History Social History: Walks daily for exercise. Follows heart healthy diet. Does not drink caffeine. Smoking status: Never smoker Alcohol intake: never Substance use: never Substance use type: does not use Lack of Transportation: No Lack of Food: Sometimes True Current Housing: I Have Housing Concerned About Future Housing: No Difficulty Paying Gas/Electric Bills: No Difficulty Paying for Meds: YES Currently Unemployed: YES Education: High School Diploma/GED Difficulty w/ Childcare or Family Care: No Living arrangements: with family Additional living arrangements comments: with son Occupation/Education: unemployed Spiritual care concerns: No Exam Narrative: GENERAL: Well-appearing, well-nourished, and in no acute distress. HEAD: Normocephalic, atraumatic. ENT: Mucous membranes moist. EXTREMITIES: RUE with tenderness at the acromioclavicular process. Pain with abduction and external rotation. normal internal rotation. Right knee exam with mild effusion but no joint line tenderness or decrease in ROM. SKIN: Warm, dry, no rash. NEURO: Alert and oriented x3. PSYCH: Normal mood and affect. Course Course Emergency Course: Discussed loose body in biceps tendon sheath. Recommend follow-up with Orthop edic surgery. Will prescribe anti-inflammatories muscle relaxers for home. Patient verbalized understanding. Discharge. Vital Signs Vital signs: Vital Signs Temperature 97.9 F 09/06/24 07:16 Pulse Rate 89 09/06/24 07:16 Respiratory Rate 16 09/06/24 07:16 Blood Pressure 108/68 09/06/24 07:16 Pulse Oximetry 100 09/06/24 07:16 Oxygen Delivery Room Air 09/06/24 07:16 Temperature 97.9 F 09/06/24 07:16 Pulse Rate 89 09/06/24 07:16 Respiratory Rate 16 09/06/24 07:16 Blood Pressure 108/68 09/06/24 07:16 Pulse Oximetry 100 09/06/24 07:16 Oxygen Delivery Room Air 09/06/24 07:16 MDM - Fall Imaging Data Radiologist's impression: ITS Impressions Shoulder X-Ray 09/06/24 07:52 Impression: Probable loose body in the biceps tendon sheath region. No fracture or dislocation. Discharge Plan Discharge Clinical Impression: Loose body in right shoulder Patient Disposition: Home Condition: Stable Instructions: Exercises for Internal and External Shoulder Rotation (ED), Exe rcises for Shoulder Abduction and Adduction (ED) Additional Instructions: Return to the ER if you have chest pain and shortness of breath, you cannot keep down food water, you lose consciousness, or you have additional concerns. Patient Language: Guyanese Prescriptions: New cyclobenzaprine 10 mg tablet 10 mg PO TID PRN (Reason: muscle spasm) Qty: 20 0RF naproxen 375 mg tablet 375 mg PO BID Qty: 14 0RF No Action acyclovir 400 mg tablet 400 mg PO BID PRN (Reason: PRN) Patient Comments: pt. states he takes once a day every several months PRN metformin 500 mg tablet extended release 24 hr 500 mg PO DAILY Rx Instructions: 1 tablet daily for 1 week then 1 tablet twice daily before breakfast and dinner (DME) lancets [Accu-Chek Softclix Lancets] Misc See Rx Instructions .Route Qty: 100 0RF Rx Instructions: daily docusate sodium [Colace] 100 mg capsule 100 mg PO BID Qty: 20 0RF Follow-up/Referrals: Bernardo Russo MD [Physician] - 1 Week Randal Chadwick MD [Primary Care Provider] -
[2024-09-06 08:42] VITALS: BP 112/68; PULSE 82; RESP 16; TEMP 36.6; O2SAT 100
== END 2024-09-06 08:44 | disposition home or self-care (01) ==
PROVIDERS: Emergency Provider Emergency Medicine; PCP Family Medicine Adolescent Medicine
DX: M24.011 Loose body in right shoulder (principal); W01.0XXA Fall on same level from slipping, tripping and stumbling without subsequent striking against object, initial encounter
CPT/HCPCS: 73030; 96372; 99283; J1885

== ENCOUNTER 2024-10-25 08:15 | Outpatient (RCR) | payer OTHER, SELFPAY ==
--- NOTE | 2024-09-25 14:28 | OPREHPOC ---
Outpatient Therapy Plan of Care This is a Multidisciplinary Plan of Care that may contain components documented by all disciplines (PT, OT, and ST.) PT Problem 1 PT Problem #1 Knowledge Deficit PT Goal 1 Goal / Goal Update Patient to demonstrate independence with HEP for improved self-reliance of symptom management. Target Visit 5 PT Problem 2 PT Problem #2 Pain PT Goal 1 Goal / Goal Update Patient to decrease subjective reports of pain to <2/10 with prolonged walking for improved ADL tolerance. Target Visit 5 PT Problem 3 PT Problem #3 Impaired Gait PT Goal 1 Goal / Goal Update Patient to improve gait mechanics and stair negotiation to no noted deficit and reciprocal pattern for improved community navigation. Target Visit 10 PT Problem 4 PT Problem #4 Impaired Range of Motion PT Goal 1 Goal / Goal Update Patient to demonstrate an increase of R knee AROM of 0-125 deg to improve mobility required for gait /stair negotiation. Target Visit 10 PT Problem 5 PT Problem #5 Impaired Strength PT Goal 1 Goal / Goal Update Patient to demonstrate R knee strength >=5/5 for improved functional stability required for ADLs.
--- NOTE | 2024-09-25 14:28 | PTOPEVAL1 ---
Assessment and note entered by Yaima Rico, PT Evaluation Information Assessment Status Evaluation ICD-10 Condition Codes (PT) Pain in right knee M25.561 Onset ~07/30/24 Subjective Information Primary Complaint: R knee pain History of current condition: Pt reports symptoms started around 2 months ago after he fell onto his knee. He was wrapping up an extension cord, he fell and twisted his knee. He did have the knee drained a few weeks ago. He is reporting more stiffness and swelling since the fall. He has had issues with his knee before this but thinks it is more irritated now. He does have a bakers cyst on this knee as well. Sxs made worse with: deep squatting, bending, prolonged walking/standing Sxs improved with: sitting/resting, TENS unit CLOF: limited ability to get into bathtub, grocery shopping, stair negotiation PLOF: no limitations Reported Pain Level Pain Score 0: Self Report Assessment PT Clinical Summary Pt is a 59 year old male who presents to physical therapy with a primary complaint of R knee pain since a ground level fall 2 months ago. Pt demonstrates weakness, pain, decreased mobility, gait deficit, and decreased flexibility that limit their ability to perform ADLs. Pt will benefit from skilled physical therapy to address the above listed deficits and return to PLOF. HEP instructed and written handout provided, EX tolerated well with no adverse effects to note post-session. Pt was educated on importance of adherence to HEP. Pt was also educated on anatomy, prognosis, home modalities, and PT POC. Plan of Care Interventions Aquatic Therapy,Electrical Stimulation,Gait Training,Hot Pack/Cold Pack,Intermittent Compression Pump,Manual Therapy,Neuro Re-education ,Patient/Caregiver Education,Therapeutic Activities,Therapeutic Exercise,Self-Care/Home Management Other Interventions taping, dry needling PT Services Indicated Yes Treatment Frequency and 2x/wk for 10 sessions Duration These treatments will address the objective and functional deficits as defined above. The patient will be advanced safely and appropriately in order for the patient to progress towards his/her prior level of function. Additional exercises will be introduced and as well as a comprehensive home exercise program upon discharge, if needed, ?to ensure carryover of functional gains achieved in the clinic. This treatment plan has been reviewed and agreement upon by the patient.
--- NOTE | 2024-10-25 08:53 | PTOPDC ---
Assessment and note entered by Yaima Rico, PT Evaluation Information Assessment Status Evaluation ICD-10 Condition Codes (PT) Pain in right knee M25.561 Onset ~07/30/24 Subjective Information Overall the pt reports feeling 50% improvement since first starting therapy. There are higher level things like using a chainsaw, moving limbs, and mowing grass that he has not attempted due to pain. His main concern is the bakers cyst in the back of his knee that he thinks causes the tightness. He can get in/out of the bathtub with no pain, do the stairs, and speed up to get through a cross walk. He does not think he limps anymore but he is fearful of doing too much. He reports it feels tight like a belt on the back side of his knee. Reported Pain Level Pain Score 0: Self Report Additional Pain Score Comments remaining discomfort is stiffness not pain 06/08 Assessment PT Clinical Summary Patient's condition has improved overall as evidenced by advancements in symptoms, mobility, strength, and overall functional use of the extremity. Pt has met all therapy goals and is pleased with progress made in PT. The remaining discomfort is tightness and can be attributed to the bakers cyst. Pt will be consulting with his physician about next steps in regard to this. Patient to DC from PT this date and continue with updated HEP as instructed. Pt to contact PT or PCP if questions or concerns arise. Plan of Care PT Services Indicated Yes
== END 2024-10-25 09:32 | disposition home or self-care (01) ==
LOC: ANHPT 08:15
PROVIDERS: PCP Family Medicine Adolescent Medicine
DX: M17.11 Unilateral primary osteoarthritis, right knee (principal); M25.561 Pain in right knee
CPT/HCPCS: 97016; 97110; 97116; 97140; 97161; 97530